=== PATIENT | female | born 1965 | race Caucasian/White ===

== ENCOUNTER 2016-08-31 11:57 | Inpatient (IN) | payer MEDICARE ==
[2016-08-31] VITALS (9 sets, daily range): BP systolic 85–101; BP diastolic 54–63
[~2016-08-31] VITALS: Ht 157.5 cm; Wt 44.3 kg
[~2016-08-31 11:57] MED LIST: ALBU18HF IH; BUDE10.2 IH; CALC600T11 PO; CLON0.5T PO; CYAN100016 SL; ESTR42.53 VG; FAMO-63 PO; FERR-26 PO; FLUD0.1T PO; FLUO10CA7 PO; FOLI1TAB16 PO; HYDR20TA PO; HYDR25TA PO; LEVALBUTER1.25 MG/0. IH; LEVO150T5 PO; MIRT15TA3 PO; MORP15TA34 PO; NIAC500T9 PO; OMEG1CAP6 PO; OXYC15TA22 PO; PANT40TA5 PO; PNV1TABL4 PO; PROP10TA PO; RANI150T2 PO; SUCR1TAB PO; TEST60CR TD; TIZA4TAB PO; TRAM-29 PO; TRAZ100T12 PO
[2016-08-31 15:06] LABS: BASO % 1 % (0-3); EOS # 0.2 x10^3/uL (0.0-0.7); EOS % 6 % (0-3); HEMATOCRIT 28.4 % (36.0-47.0); HEMOGLOBIN 9.4 g/dL (12.0-15.5); LYMPH # 1.5 x10^3/uL (1.0-4.8); LYMPH % 40 % (24-48); MEAN CORPUSCULAR HEMOGLOBIN 32 pg (25-35); MEAN CORPUSCULAR HGB CONC 33 g/dL (31-37); MEAN CORPUSCULAR VOLUME 96 fL (79-100); MONO # 0.2 x10^3/uL (0.0-1.1); MONO % 6 % (0-9); NEUT # 1.7 x10^3uL (1.8-7.7); NEUT % 47 % (31-73); PLATELET COUNT 153 x10^3/uL (140-400); RED BLOOD COUNT 2.97 x10^6/uL (3.50-5.40); RED CELL DISTRIBUTION WIDTH 13.8 % (11.5-14.5); WHITE BLOOD COUNT 3.6 x10^3/uL (4.0-11.0)
[2016-08-31 15:14] LABS: ALBUMIN/GLOBULIN RATIO 0.9 (1.0-1.7); CALCIUM 8.5 mg/dL (8.5-10.1); CREATININE 1.3 mg/dL (0.6-1.0); POTASSIUM 4.3 mmol/L (3.5-5.1); TOTAL BILIRUBIN 0.3 mg/dL (0.2-1.0); TOTAL PROTEIN 6.2 g/dL (6.4-8.2)
[2016-08-31] MEDS ORDERED: FERR325T31 PO (15:34)
[2016-08-31] MEDS ORDERED: PHEN-373 PO (15:34)
[2016-08-31] MEDS ORDERED: TRAM50TA PO (15:35)
[2016-08-31] MEDS ORDERED: FLUT1DIS3 IH (15:36)
[2016-08-31] MEDS ORDERED: HYDROCORTISONE 20 MG TABLET. PO PRN (16:00)
[2016-08-31] MEDS ORDERED: PROPRANOLOL 10 MG TABLET. PO PRN (16:00)
[2016-08-31] MEDS: IV NORMAL SALINE 1,000ML 1,000 ML IV SCH (16:05)
[2016-08-31] MEDS ORDERED: ALBUTEROL SULFATE 2.5 MG/3 ML NEBU. NEB PRN ×2 (16:30→21:00)
[2016-08-31] MEDS: FERROUS SULFATE 325 MG TABLET PO SCH ×2 (16:30→20:36)
[2016-08-31] MEDS: FOLIC ACID 1 MG TABLET PO SCH (16:31)
[2016-08-31] MEDS: OXYCODONE IR 5 MG TABLET. PO PRN (16:34)
--- NOTE | 2016-08-31 16:41 | RAD ---
Chest, 2 views, 08/31/2016: History: Shortness of breath, cough Comparison is made to a study from 02/26/2013. The lungs are hyperexpanded. The heart size is normal. There is a minimal streaky opacity projected over the anterior aspect of the heart on the lateral view suggesting atelectasis and/or scarring. This probably lies in the right middle lobe. There is also a small opacity projected over the left side of the heart on the PA view. There is no evidence of pleural fluid. IMPRESSION: 1. Hyperexpansion of lungs suggesting COPD. 2. Mild streaky atelectasis or scarring in the right middle lobe. 3. Small left basilar opacity which may represent a focus of pneumonia. Radiographic follow-up is suggested to exclude a neoplastic etiology.
[2016-08-31] MEDS: CALCIUM CARBONATE 500 MG TABLET PO SCH (17:24)
[2016-08-31] MEDS: traZODone 100 MG TABLET. PO SCH (20:36)
[2016-08-31] MEDS: FAMOTIDINE 20 MG TABLET PO SCH (20:36)
[2016-08-31] MEDS: MIRTAZAPINE 15 MG TABLET PO SCH (20:36)
[2016-08-31] MEDS: PHENAZOPYRIDINE 200 MG TABLET. PO SCH (20:36)
[2016-08-31] MEDS: FLUDROCORTISONE 0.1 MG TABLET PO SCH (20:37)
[2016-08-31] MEDS: MORPHINE ER 30 MG TABLET.ER PO SCH (20:38)
[2016-08-31] MEDS: HYDROXYZINE HCL 25 MG TABLET PO PRN (20:41)
[2016-08-31] MEDS ORDERED: ALBUTEROL SULFATE 8GM INHALER. IH PRN (20:45)
[2016-08-31] MEDS ORDERED: LEVALBUTEROL HCL 0.63 MG IH SCH (21:00)
[2016-08-31] MEDS ORDERED: NON FORMULARY ITEM (Fluticasone/Salmeterol (Advair 250-50 Diskus) 1 EACH) IH SCH (21:00)
[2016-08-31] MEDS ORDERED: NON FORMULARY ITEM (Budesonide/Formoterol Fumarate (Symbicort 160-4.5 Mcg Inhaler) 10.2 GM IH SCH (21:00)
[2016-08-31] MEDS: ALBUTEROL SULFATE 2.5 MG/3 ML NEBU. NEB SCH (21:27)
[2016-08-31] MEDS: BUDESONIDE 0.5 MG/2 ML NEBU NEB SCH (21:27)
[2016-08-31] MEDS: SUCRALFATE 1 GM TABLET. PO SCH (21:37)
[2016-09-01] MEDS: IV NORMAL SALINE 1,000ML 1,000 ML IV SCH ×3 (02:56→20:05)
[2016-09-01] MEDS: OXYCODONE IR 5 MG TABLET. PO PRN ×3 (04:20→16:57)
[2016-09-01 04:29] VITALS: BP 100/63
[2016-09-01] MEDS: ALBUTEROL SULFATE 2.5 MG/3 ML NEBU. NEB SCH ×4 (06:00→20:38)
[2016-09-01] MEDS: LEVOTHYROXINE 150 MCG TABLET PO SCH (06:03)
[2016-09-01 06:36] LABS: BASO % 1 % (0-3); EOS # 0.2 x10^3/uL (0.0-0.7); EOS % 5 % (0-3); HEMATOCRIT 28.3 % (36.0-47.0); HEMOGLOBIN 9.4 g/dL (12.0-15.5); LYMPH # 2.6 x10^3/uL (1.0-4.8); LYMPH % 56 % (24-48); MEAN CORPUSCULAR HEMOGLOBIN 32 pg (25-35); MEAN CORPUSCULAR HGB CONC 33 g/dL (31-37); MEAN CORPUSCULAR VOLUME 96 fL (79-100); MONO # 0.3 x10^3/uL (0.0-1.1); MONO % 6 % (0-9); NEUT # 1.5 x10^3uL (1.8-7.7); NEUT % 33 % (31-73); PLATELET COUNT 165 x10^3/uL (140-400); RED BLOOD COUNT 2.96 x10^6/uL (3.50-5.40); WHITE BLOOD COUNT 4.6 x10^3/uL (4.0-11.0)
[2016-09-01 06:47] LABS: CALCIUM 8.5 mg/dL (8.5-10.1); CREATININE 1.4 mg/dL (0.6-1.0); GFR 39.5; POTASSIUM 4.1 mmol/L (3.5-5.1)
[2016-09-01] MEDS: CEFTRIAXONE SODIUM 1 GM in IV NORMAL SALINE 50ML 50 ML IV SCH ×2 (07:00→11:42)
[2016-09-01] MEDS: BUDESONIDE 0.5 MG/2 ML NEBU NEB SCH ×2 (09:41→20:38)
[2016-09-01] MEDS: PANTOPRAZOLE 40 MG TABLET. PO SCH (09:48)
[2016-09-01] MEDS: SUCRALFATE 1 GM TABLET. PO SCH ×4 (09:48→20:06)
[2016-09-01] MEDS: FLUDROCORTISONE 0.1 MG TABLET PO SCH ×3 (09:49→20:06)
[2016-09-01] MEDS: MORPHINE ER 30 MG TABLET.ER PO SCH ×2 (09:49→20:07)
[2016-09-01] MEDS: CYANOCOBALAMIN (VITAMIN B-12) 250 MCG TABLET PO SCH (09:50)
[2016-09-01] MEDS: PHENAZOPYRIDINE 200 MG TABLET. PO SCH (09:50)
[2016-09-01] MEDS: FERROUS SULFATE 325 MG TABLET PO SCH ×4 (09:51→20:08)
[2016-09-01] MEDS: FLUOXETINE HCL 10 MG CAPSULE PO SCH (09:51)
[2016-09-01] MEDS: CALCIUM CARBONATE 500 MG TABLET PO SCH ×3 (09:51→16:59)
[2016-09-01] MEDS: FAMOTIDINE 20 MG TABLET PO SCH (09:51)
[2016-09-01] MEDS: OMEGA-3 FATTY ACIDS/FISH OIL 1,000 MG CAPSULE. PO SCH (09:51)
[2016-09-01] MEDS: FOLIC ACID 1 MG TABLET PO SCH (09:52)
[2016-09-01] MEDS: PRENATAL MULTIVITAMIN TABLET. PO SCH (09:52)
[2016-09-01] MEDS: tiZANidine 4 MG TABLET. PO PRN (10:06)
[2016-09-01 10:45] VITALS: BP 93/62
[2016-09-01] MEDS: AZITHROMYCIN 500 MG in IV NORMAL SALINE 250ML 250 ML IV SCH (10:48)
[2016-09-01 11:11] VITALS: BP 84/52
[2016-09-01] MEDS: CLONAZEPAM 0.5 MG TABLET PO PRN (12:56)
[2016-09-01 14:08] LABS: FECAL OB PT NEGATIVE (NEG)
[2016-09-01 15:48] VITALS: BP 93/57
--- NOTE | 2016-09-01 16:40 | RAD ---
CT of the chest without contrast, 09/01/2016: History: Pneumonia Noncontrast scans were obtained as requested. Comparison is made to a study from 01/08/2005 There is minimal apical pleural-parenchymal scarring. There are minimal linear opacities in the lung bases including the right middle lobe and inferior lingular region. The findings suggest scarring and/or atelectasis. No significant pulmonary consolidation is seen. A calcified granuloma is present in the right lower lobe medially. A tiny 2 mm noncalcified nodule is noted in the lateral aspect of the right middle level. It appears unchanged since the prior exam, indicating a benign etiology such as a granuloma. There is a trace amount of left-sided pleural fluid. Several tiny foci of nonspecific pleural thickening are noted posteriorly on the left. There is mild calcific plaquing of the thoracic aorta without evidence of aneurysm. No mediastinal adenopathy is seen. The heart is of normal size. A tiny amount of pericardial fluid is present. IMPRESSION: 1. Mild bibasilar linear scarring and/or atelectasis. 2. Tiny left pleural effusion with several small foci of nonspecific pleural thickening posteriorly on the left. 3. Old healed granulomatous disease in the chest. PQRS Compliance Statement: One or more of the following individualized dose reduction techniques were utilized for this examination: 1. Automated exposure control 2. Adjustment of the mA and/or kV according to patient size 3. Use of iterative reconstruction technique
--- NOTE | 2016-09-01 19:34 | PN ---
DATE: SUBJECTIVE: The patient admitted with generalized weakness, hypotension. The patient was also noted to have a pneumonic process, currently on IV antibiotic therapy. Continue on IV fluids. OBJECTIVE: VITAL SIGNS: The patient's blood pressure 84/50, respiratory rate 16, pulse 71, afebrile. GENERAL: The patient is alert and oriented. LUNGS: Diminished. She is very weak. Crackles in the bases. CARDIOVASCULAR: Regular sinus rhythm. ABDOMEN: Soft, diffuse tenderness. She has a colostomy bag on. EXTREMITIES: No clubbing, cyanosis or edema. NEUROLOGIC: Baseline for her. LABORATORY DATA: Hemoglobin 9.4, 28, white count 4.6. Sodium and potassium 143, 4.1. GFR ____ 40, albumin 3. IMPRESSION: Pneumonia of unspecified etiology, community acquired; Wilcox's disease with hypercortisol levels, hypotension, chronic kidney disease 3, iron deficiency anemia, mild to moderate protein malnutrition. PLAN: Continue on IV antibiotic therapy, fluids, hydration and try to get that blood pressure up. KARTIK KIRKLAND MD DR: QUINTON/adryan JOB#: [id number] / [id number]
[2016-09-01] MEDS: MIRTAZAPINE 15 MG TABLET PO SCH (20:06)
[2016-09-01] MEDS: HYDROXYZINE HCL 25 MG TABLET PO PRN (20:07)
[2016-09-01] MEDS: traZODone 100 MG TABLET. PO SCH (20:08)
[2016-09-01 20:19] VITALS: BP 102/60
[2016-09-01] MEDS: ONDANSETRON PF 4 MG/2 ML VIAL. IV PRN (23:31)
[2016-09-01] MEDS: TRAMADOL 50 MG TABLET. PO PRN (23:32)
[2016-09-02] MEDS: LEVOTHYROXINE 150 MCG TABLET PO SCH (05:34)
[2016-09-02] MEDS: ALBUTEROL SULFATE 2.5 MG/3 ML NEBU. NEB SCH ×4 (05:38→21:04)
[2016-09-02 05:53] VITALS: BP 97/56
[2016-09-02] MEDS: ONDANSETRON PF 4 MG/2 ML VIAL. IV PRN ×3 (06:08→17:32)
[2016-09-02] MEDS: TRAMADOL 50 MG TABLET. PO PRN (06:09)
[2016-09-02] MEDS: CEFTRIAXONE SODIUM 1 GM in IV NORMAL SALINE 50ML 50 ML IV SCH (08:14)
[2016-09-02] MEDS: OMEGA-3 FATTY ACIDS/FISH OIL 1,000 MG CAPSULE. PO SCH (08:15)
[2016-09-02] MEDS: CALCIUM CARBONATE 500 MG TABLET PO SCH ×3 (08:15→17:32)
[2016-09-02] MEDS: FERROUS SULFATE 325 MG TABLET PO SCH ×4 (08:15→19:58)
[2016-09-02] MEDS: FAMOTIDINE 20 MG TABLET PO SCH (08:15)
[2016-09-02] MEDS: CYANOCOBALAMIN (VITAMIN B-12) 250 MCG TABLET PO SCH (08:15)
[2016-09-02] MEDS: PRENATAL MULTIVITAMIN TABLET. PO SCH (08:15)
[2016-09-02] MEDS: FLUDROCORTISONE 0.1 MG TABLET PO SCH ×3 (08:15→19:58)
[2016-09-02] MEDS: PANTOPRAZOLE 40 MG TABLET. PO SCH (08:15)
[2016-09-02] MEDS: MORPHINE ER 30 MG TABLET.ER PO SCH ×2 (08:16→19:59)
[2016-09-02] MEDS: SUCRALFATE 1 GM TABLET. PO SCH ×4 (08:16→19:58)
[2016-09-02] MEDS: FLUOXETINE HCL 10 MG CAPSULE PO SCH (08:16)
[2016-09-02] MEDS: AZITHROMYCIN 500 MG in IV NORMAL SALINE 250ML 250 ML IV SCH (09:14)
[2016-09-02] MEDS: IV NORMAL SALINE 1,000ML 1,000 ML IV SCH ×2 (09:15→19:58)
[2016-09-02] MEDS: tiZANidine 4 MG TABLET. PO PRN ×2 (09:32→19:59)
[2016-09-02] MEDS: IBUPROFEN 400 MG TABLET. PO PRN ×2 (09:32→17:32)
[2016-09-02 10:57] VITALS: BP 89/53
[2016-09-02] MEDS: BUDESONIDE 0.5 MG/2 ML NEBU NEB SCH ×2 (11:25→21:04)
[2016-09-02 14:31] LABS: IRON,SERUM 73 ug/dL (50-170)
[2016-09-02 15:36] VITALS: BP 93/52
[2016-09-02 19:53] VITALS: BP 102/67
[2016-09-02] MEDS: MIRTAZAPINE 15 MG TABLET PO SCH (19:59)
[2016-09-02] MEDS: traZODone 100 MG TABLET. PO SCH (19:59)
[2016-09-02] MEDS: CLONAZEPAM 0.5 MG TABLET PO PRN (22:15)
[2016-09-02] MEDS: HYDROXYZINE HCL 25 MG TABLET PO PRN (22:17)
[2016-09-03] MEDS: ONDANSETRON PF 4 MG/2 ML VIAL. IV PRN ×3 (01:26→21:03)
[2016-09-03] MEDS: IBUPROFEN 400 MG TABLET. PO PRN ×3 (01:26→17:21)
[2016-09-03] MEDS: ALBUTEROL SULFATE 2.5 MG/3 ML NEBU. NEB SCH ×4 (05:48→20:50)
[2016-09-03] MEDS: LEVOTHYROXINE 150 MCG TABLET PO SCH (06:03)
[2016-09-03 06:40] VITALS: BP 101/58
[2016-09-03 06:49] LABS: BASO % 1 % (0-3); EOS # 0.2 x10^3/uL (0.0-0.7); EOS % 6 % (0-3); HEMATOCRIT 25.4 % (36.0-47.0); HEMOGLOBIN 8.4 g/dL (12.0-15.5); LYMPH # 1.5 x10^3/uL (1.0-4.8); LYMPH % 42 % (24-48); MEAN CORPUSCULAR HEMOGLOBIN 32 pg (25-35); MEAN CORPUSCULAR HGB CONC 33 g/dL (31-37); MEAN CORPUSCULAR VOLUME 97 fL (79-100); MONO # 0.2 x10^3/uL (0.0-1.1); MONO % 6 % (0-9); NEUT # 1.6 x10^3uL (1.8-7.7); NEUT % 45 % (31-73); PLATELET COUNT 131 x10^3/uL (140-400); RED BLOOD COUNT 2.62 x10^6/uL (3.50-5.40); RED CELL DISTRIBUTION WIDTH 14.4 % (11.5-14.5); WHITE BLOOD COUNT 3.5 x10^3/uL (4.0-11.0)
[2016-09-03 06:51] LABS: ALBUMIN 2.6 g/dL (3.4-5.0); ALBUMIN/GLOBULIN RATIO 0.9 (1.0-1.7); CALCIUM 8.3 mg/dL (8.5-10.1); CREATININE 1.2 mg/dL (0.6-1.0); GFR 47.2; TOTAL BILIRUBIN 0.3 mg/dL (0.2-1.0); TOTAL PROTEIN 5.5 g/dL (6.4-8.2)
[2016-09-03] MEDS: BUDESONIDE 0.5 MG/2 ML NEBU NEB SCH ×2 (08:00→20:50)
[2016-09-03] MEDS: CYANOCOBALAMIN (VITAMIN B-12) 250 MCG TABLET PO SCH (09:00)
[2016-09-03] MEDS ORDERED: CEFTRIAXONE SODIUM 1 GM in IV NORMAL SALINE 50ML 50 ML IV ONE (09:15)
[2016-09-03] MEDS ORDERED: ACETAMINOPHEN 325 MG TABLET PO PRN (09:30)
[2016-09-03] MEDS: FOLIC ACID 1 MG TABLET PO SCH (09:36)
[2016-09-03] MEDS: OMEGA-3 FATTY ACIDS/FISH OIL 1,000 MG CAPSULE. PO SCH (09:36)
[2016-09-03] MEDS: FAMOTIDINE 20 MG TABLET PO SCH (09:37)
[2016-09-03] MEDS: AZITHROMYCIN 250 MG TABLET. PO SCH (09:37)
[2016-09-03] MEDS: FLUOXETINE HCL 10 MG CAPSULE PO SCH (09:37)
[2016-09-03] MEDS: FERROUS SULFATE 325 MG TABLET PO SCH ×4 (09:37→19:36)
[2016-09-03] MEDS: MORPHINE ER 30 MG TABLET.ER PO SCH ×2 (09:37→19:31)
[2016-09-03] MEDS: PANTOPRAZOLE 40 MG TABLET. PO SCH (09:37)
[2016-09-03] MEDS: PRENATAL MULTIVITAMIN TABLET. PO SCH (09:38)
[2016-09-03] MEDS: FLUDROCORTISONE 0.1 MG TABLET PO SCH ×3 (09:40→19:32)
[2016-09-03] MEDS: CALCIUM CARBONATE 500 MG TABLET PO SCH ×3 (09:49→17:21)
[2016-09-03] MEDS: SUCRALFATE 1 GM TABLET. PO SCH ×4 (09:49→19:30)
[2016-09-03 11:57] VITALS: BP 144/75
--- NOTE | 2016-09-03 15:41 | RAD ---
CT of the head without contrast, 09/03/2016: History: Headaches Comparison is made to a study from 02/20/2004. The ventricles are within normal limits in size. There is no shift of the midline structures. There is no evidence of acute intracranial hemorrhage or mass effect. IMPRESSION: The CT of the head without contrast reveals no significant abnormality. RS Compliance Statement: One or more of the following individualized dose reduction techniques were utilized for this examination: 1. Automated exposure control 2. Adjustment of the mA and/or kV according to patient size 3. Use of iterative reconstruction technique
[2016-09-03 15:42] VITALS: BP 121/73
--- NOTE | 2016-09-03 16:49 | RAD ---
Chest, 2 views, 09/03/2016: History: Pneumonia Comparison is made to a study from 08/31/2016. The heart size and pulmonary vascularity are normal. There is minimal streaky atelectasis or scarring in the lingula. No new pulmonary opacities are seen. Blunting of the left lateral costophrenic angle suggests a tiny amount pleural fluid. IMPRESSION: 1. Mild linear scarring or atelectasis in the lingula. 2. Probable tiny left pleural effusion.
[2016-09-03 19:19] VITALS: BP 124/51
[2016-09-03] MEDS: traZODone 100 MG TABLET. PO SCH (19:31)
[2016-09-03] MEDS: MIRTAZAPINE 15 MG TABLET PO SCH (19:31)
[2016-09-03] MEDS: CLONAZEPAM 0.5 MG TABLET PO PRN (19:31)
--- NOTE | 2016-09-03 22:08 | PN ---
DATE: SUBJECTIVE: The patient is still having cough ____ pale appearing. The patient is resting fairly comfortably, still nauseated, getting antiemetics that seem to help her. We will get CT scan of the head today. PHYSICAL EXAMINATION: VITAL SIGNS: Show an increase in her blood pressure slightly to 100/50, respiratory rate 16, pulse 60, afebrile. GENERAL: The patient is alert and oriented. LUNGS: Diminished, but clear, some coarse breath sounds in the bases. We will repeat chest x-ray. CARDIOVASCULAR: Regular sinus rhythm. ABDOMEN: Soft, nontender. NEUROLOGIC: Alert and oriented. Speech fluent and spontaneous. Cranial nerves 2-12 grossly intact. PLAN: We will go ahead and get the repeat chest x-ray, check on any signs of pneumonia as well as a CT scan of her head. LABORATORY DATA: The patient's sodium, potassium stable. The patient's creatinine is still slightly elevated. Iron levels good, still low ____ encourage more nutritional intake. Also, TSH is low showing hyperthyroidism. IMPRESSION: Pneumonia of unspecified etiology, Dixon's disease, hypotension and pleural effusion. KARTIK KIRKLAND MD DR: QUINTON/adryan JOB#: [id number] / [id number]
[2016-09-04] MEDS: CEFTRIAXONE SODIUM 1 GM in IV NORMAL SALINE 50ML 50 ML IV SCH (05:16)
[2016-09-04] MEDS: SUCRALFATE 1 GM TABLET. PO SCH ×4 (05:16→20:24)
[2016-09-04] MEDS: LEVOTHYROXINE 150 MCG TABLET PO SCH (05:17)
[2016-09-04] MEDS: OXYCODONE IR 5 MG TABLET. PO PRN (05:17)
[2016-09-04] MEDS: ALBUTEROL SULFATE 2.5 MG/3 ML NEBU. NEB SCH ×4 (05:22→20:00)
[2016-09-04 05:35] VITALS: BP 90/50
[2016-09-04] MEDS: FERROUS SULFATE 325 MG TABLET PO SCH ×4 (08:38→20:24)
[2016-09-04] MEDS: FOLIC ACID 1 MG TABLET PO SCH (08:38)
[2016-09-04] MEDS: FLUOXETINE HCL 10 MG CAPSULE PO SCH (08:38)
[2016-09-04] MEDS: CALCIUM CARBONATE 500 MG TABLET PO SCH ×3 (08:38→17:14)
[2016-09-04] MEDS: AZITHROMYCIN 250 MG TABLET. PO SCH (08:38)
[2016-09-04] MEDS: FLUDROCORTISONE 0.1 MG TABLET PO SCH ×3 (08:38→20:24)
[2016-09-04] MEDS: PRENATAL MULTIVITAMIN TABLET. PO SCH (08:38)
[2016-09-04] MEDS: OMEGA-3 FATTY ACIDS/FISH OIL 1,000 MG CAPSULE. PO SCH (08:38)
[2016-09-04] MEDS: MORPHINE ER 30 MG TABLET.ER PO SCH ×2 (08:39→20:25)
[2016-09-04] MEDS: CYANOCOBALAMIN (VITAMIN B-12) 250 MCG TABLET PO SCH (08:39)
[2016-09-04] MEDS: PANTOPRAZOLE 40 MG TABLET. PO SCH (08:39)
[2016-09-04] MEDS: FAMOTIDINE 20 MG TABLET PO SCH (08:39)
[2016-09-04] MEDS: BUDESONIDE 0.5 MG/2 ML NEBU NEB SCH ×2 (11:06→20:00)
[2016-09-04] MEDS: IBUPROFEN 400 MG TABLET. PO PRN ×2 (11:12→17:39)
[2016-09-04] MEDS: ONDANSETRON PF 4 MG/2 ML VIAL. IV PRN (11:12)
[2016-09-04 11:40] VITALS: BP 97/59
[2016-09-04 16:01] VITALS: BP 91/57
[2016-09-04] MEDS: ONDANSETRON ODT 4 MG TAB.RAPDIS PO PRN (17:39)
[2016-09-04 19:09] VITALS: BP 106/71
[2016-09-04] MEDS: TRAMADOL 50 MG TABLET. PO PRN (19:56)
--- NOTE | 2016-09-04 20:03 | PN ---
DATE: 09/04/2016 SUBJECTIVE: She is resting fairly comfortably, although still very weak blood pressure still dropping. The patient otherwise will continue to monitor, continue with physical and occupational therapy. Hemoglobin down 8.4 and 25. Sodium, potassium, BUN and creatinine are all stable. In any case, the patient's albumin low at 2.6. The patient also still looks like she might have some hyperthyroidism. OBJECTIVE: VITAL SIGNS: Otherwise blood pressure 90/50, respiratory rate 20, pulse 66, afebrile. Continue on IV fluids. Continue with aggressive pulmonary toilet. LUNGS: Diminished throughout, but clear. CARDIOVASCULAR: Stable. ABDOMEN: Soft, nontender. The patient continued to be monitored carefully make further evaluation on her as indicated. IMPRESSION: Pneumonia of unspecified etiology, disease, hypertension, anemia of chronic disease, pleural effusions. KARTIK KIRKLAND MD DR: QUINTON/adryan JOB#: [id number] / [id number]
[2016-09-04] MEDS: traZODone 100 MG TABLET. PO SCH (20:24)
[2016-09-04] MEDS: MIRTAZAPINE 15 MG TABLET PO SCH (20:25)
[2016-09-05 00:08] VITALS: BP 130/71
[2016-09-05] MEDS: LEVOTHYROXINE 150 MCG TABLET PO SCH (06:07)
[2016-09-05] MEDS: CEFTRIAXONE SODIUM 1 GM in IV NORMAL SALINE 50ML 50 ML IV SCH (06:07)
[2016-09-05 06:29] VITALS: BP 117/64
[2016-09-05] MEDS: ALBUTEROL SULFATE 2.5 MG/3 ML NEBU. NEB SCH ×2 (07:21→11:20)
[2016-09-05] MEDS: BUDESONIDE 0.5 MG/2 ML NEBU NEB SCH (08:00)
[2016-09-05] MEDS: OMEGA-3 FATTY ACIDS/FISH OIL 1,000 MG CAPSULE. PO SCH (08:33)
[2016-09-05] MEDS: AZITHROMYCIN 250 MG TABLET. PO SCH (08:33)
[2016-09-05] MEDS: PANTOPRAZOLE 40 MG TABLET. PO SCH (08:33)
[2016-09-05] MEDS: FOLIC ACID 1 MG TABLET PO SCH (08:34)
[2016-09-05] MEDS: MORPHINE ER 30 MG TABLET.ER PO SCH (08:34)
[2016-09-05] MEDS: FLUOXETINE HCL 10 MG CAPSULE PO SCH (08:34)
[2016-09-05] MEDS: FLUDROCORTISONE 0.1 MG TABLET PO SCH (08:34)
[2016-09-05] MEDS: CYANOCOBALAMIN (VITAMIN B-12) 250 MCG TABLET PO SCH (08:34)
[2016-09-05] MEDS: FAMOTIDINE 20 MG TABLET PO SCH (08:34)
[2016-09-05] MEDS: FERROUS SULFATE 325 MG TABLET PO SCH (08:34)
[2016-09-05] MEDS: CALCIUM CARBONATE 500 MG TABLET PO SCH (08:34)
[2016-09-05] MEDS: SUCRALFATE 1 GM TABLET. PO SCH (08:36)
[2016-09-05] MEDS: PRENATAL MULTIVITAMIN TABLET. PO SCH (08:36)
[2016-09-05] MEDS: ONDANSETRON ODT 4 MG TAB.RAPDIS PO PRN (08:49)
[2016-09-05] MEDS: IBUPROFEN 400 MG TABLET. PO PRN (08:49)
--- NOTE | 2016-09-05 11:47 | DS ---
DATE OF DISCHARGE: 09/05/2016 HOSPITAL COURSE: The patient was admitted on 08/31/2016, she came in with severe weakness, hypotension, blood pressure of 84/50 and the like. The patient has a history of Shiloh's disease. She was given additional cortisol, made good progress, also IV antibiotics for her pneumonia. She was also chronically anemic as well as having problems with her situation with her thyroid is also somewhat will need to be worked up as an outpatient as her TSH was diminished at 0.053, iron levels were stable. Her albumin was low at 2.6 and creatinine was elevated at 1.2. The patient is markedly cachectic. In any case, the patient made good, we had given her of KAITLYN hoses to get her blood pressure backup. PHYSICAL EXAMINATION: GENERAL: She made good progress during the rest of her hospitalization. VITAL SIGNS: Her last blood pressure reading in the hospital was 117/64, respiratory rate 16, pulse 60. LUNGS: The patient's lungs diminished. CARDIOVASCULAR: Stable. ABDOMEN: Soft. The patient was told to follow up, eat better diet. She needs a full diet, gain some weight. She had a CT scan of the head, which was negative because she was having headaches. Her chest CTs at first demonstrated possible pneumonic processes and she pretty much pleural effusions as well. IMPRESSION: Therefore, See JP. Decreased activity, wear KAITLYN hoses, , pneumonia of unspecified etiology, Shiloh's disease, hypotension, anemia of chronic disease, hyperthyroidism, severe protein malnutrition, generalized weakness, cachexia. In any case, she will be discharged home to follow up as an outpatient as noted as above. KARTIK KIRKLAND MD DR: QUINTON/adryan JOB#: [id number] / [id number]
== END 2016-09-05 10:30 | disposition home or self-care (01) | DRG 193 ==
LOC: 1 SOUTH 13:12
PROVIDERS: ADMIT Family Medicine; ATTEND Family Medicine
DX: J18.9 Pneumonia, unspecified organism (principal); E43 Unspecified severe protein-calorie malnutrition; E27.1 Primary adrenocortical insufficiency; J90 Pleural effusion, not elsewhere classified; Z68.1 Body mass index [BMI] 19.9 or less, adult; I95.9 Hypotension, unspecified; D50.9 Iron deficiency anemia, unspecified; D63.8 Anemia in other chronic diseases classified elsewhere; I12.9 Hypertensive chronic kidney disease with stage 1 through stage 4 chronic kidney disease, or unspecified chronic kidney disease; N18.3 Chronic kidney disease, stage 3 (moderate); E05.90 Thyrotoxicosis, unspecified without thyrotoxic crisis or storm
CPT/HCPCS: 36415; 70450; 71020; 71250; 80048; 80053; 82274; 82533; 82607; 83540; 83550; 83605; 84443; 85027; 94640; J0456; J0696; J2405; J7050; J7613; J7626; Q0162; 97110; 97116; 97535; J7030

== ENCOUNTER 2017-01-18 09:02 | Inpatient (IN) | payer MEDICARE ==
[~2017-01-18] VITALS: Ht 157.5 cm; Wt 44.6 kg
[~2017-01-18 09:02] MED LIST changes: -CALC600T11 PO; +CALC600T23 PO; +FERR-36 PO; +FLUT1DIS3 IH; -MORP15TA34 PO; +MORP15TA80 PO; +PHEN-444 PO; -TRAM-29 PO; +TRAM-48 PO; +TRAM50TA PO; +TRAZ-90 PO; -TRAZ100T12 PO
[2017-01-18] MEDS ORDERED: IV NORMAL SALINE 500ML 500 ML ONE (09:46)
[2017-01-18] MEDS ORDERED: HYDROCORTISONE SOD SUCC/PF 100 MG/2 ML VIAL. IV ONE (09:50)
[2017-01-18] MEDS ORDERED: IV NORMAL SALINE 1,000ML 1,000 ML IV ONE (09:50)
[2017-01-18 09:52] LABS: BASO % 0 % (0-3); EOS # 0.1 x10^3/uL (0.0-0.7); EOS % 1 % (0-3); HEMATOCRIT 29.3 % (36.0-47.0); HEMOGLOBIN 9.7 g/dL (12.0-15.5); LYMPH # 0.3 x10^3/uL (1.0-4.8); LYMPH % 2 % (24-48); MEAN CORPUSCULAR HEMOGLOBIN 31 pg (25-35); MEAN CORPUSCULAR HGB CONC 33 g/dL (31-37); MEAN CORPUSCULAR VOLUME 94 fL (79-100); MONO # 0.6 x10^3/uL (0.0-1.1); MONO % 5 % (0-9); NEUT # 12.3 x10^3uL (1.8-7.7); NEUT % 92 % (31-73); PLATELET COUNT 169 x10^3/uL (140-400); RED BLOOD COUNT 3.11 x10^6/uL (3.50-5.40); RED CELL DISTRIBUTION WIDTH 13.9 % (11.5-14.5); WHITE BLOOD COUNT 13.4 x10^3/uL (4.0-11.0)
[2017-01-18 10:07] LABS: CALCIUM 9.3 mg/dL (8.5-10.1); CREATININE 2.1 mg/dL (0.6-1.0); GFR 24.6; MAGNESIUM 1.7 mg/dL (1.8-2.4); POTASSIUM 4.4 mmol/L (3.5-5.1)
--- NOTE | 2017-01-18 11:02 | EKG ---
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
[2017-01-18] MEDS ORDERED: IV NORMAL SALINE 500ML 500 ML IV ONE (11:15)
--- NOTE | 2017-01-18 12:03 | PHYS DOC ---
Past History Past Medical History: Anemia, Fibromyalgia, Hyperthyroid, Hypotension, Pneumonia, Other Past Surgical History: Colectomy Alcohol Use: None Drug Use: None Adult General Chief Complaint Chief Complaint: HYPOTENSION HPI HPI Patient is a 51 year old F who presents with low blood pressure, generalized malaise and other symptoms consistent with previous Candor's crisis. She states that over the past 4 weeks she has been coughing more frequently. This cough seems to be productive of sputum that is occasionally yellow. She also has been more off balance over the past few days resulting in several falls and right sided rib pain. She states that her pain is worse with deep inspiration and better with rest. She has no other associated symptoms Review of Systems Review of Systems Constitutional: Denies fever or chills [] Eyes: Denies change in visual acuity, redness, or eye pain [] HENT: Denies nasal congestion or sore throat [] Respiratory: Negative except history of present illness Cardiovascular: No additional information not addressed in HPI [] GI: Denies abdominal pain, nausea, vomiting, bloody stools or diarrhea [] : Denies dysuria or hematuria [] Musculoskeletal: Negative except history of present illness Integument: Denies rash or skin lesions [] Neurologic: Denies headache, focal weakness or sensory changes [] Endocrine: Denies polyuria or polydipsia [] Family History Family History Noncontributory Current Medications Current Medications Current Medications Medications (Trade) Dose Ordered Sig/Grabiel Start Time Stop Time Status Last Admin Dose Admin Hydrocortisone Sodium Succinate (Solu-CORTEF) 100 mg 1X ONCE 01/18/17 09:50 01/18/17 09:51 DC 01/18/17 09:50 100 MG Sodium Chloride 500 ml @ As Directed STK-MED ONCE 01/18/17 09:46 01/18/17 09:47 DC Allergies Allergies Allergies Coded Allergies Type Severity Reaction Last Updated Verified Penicillins Allergy Intermediate Nausea and Vomiting 09/02/16 Yes erythromycin base Allergy Intermediate Nausea and Vomiting 09/02/16 Yes loratadine Allergy Intermediate Hyper feeling 09/02/16 Yes Physical Exam Physical Exam Constitutional: malnourished, mild distress, non-toxic appearance. [] HENT: Normocephalic, bilateral external ears normal, oropharynx dry, no oral exudates, Eyes: PERRLA, EOMI, conjunctiva normal, no discharge. [] Neck: Normal range of motion, no tenderness, supple, no stridor. [] Cardiovascular:Heart rate regular rhythm, weak pulses Lungs & Thorax: Bilateral breath sounds clear to auscultation [] Abdomen: Bowel sounds normal, soft, no masses, no pulsatile masses. [] Diffuse abdominal pain. Colostomy in place with no signs of infection or other abnormalities Skin: Warm, dry, no erythema, no rash. [] Back: No tenderness, no CVA tenderness. [] Extremities: No tenderness, no cyanosis, no clubbing, ROM intact, no edema. [] Neurologic: Alert and oriented X 3, normal motor function, normal sensory function, no focal deficits noted. [] Psychologic: Affect normal, judgement normal, mood normal. [] Current Patient Data Vital Signs Vital Signs Date Time Temp Pulse Resp B/P (MAP) Pulse Ox O2 Delivery O2 Flow Rate FiO2 01/18/17 11:21 98 18 84/51 (62) 98 Nasal Cannula 2.0 01/18/17 09:05 98.3 Lab Results Laboratory Tests Test 01/18/17 09:35 White Blood Count 13.4 x10^3/uL (4.0-11.0) H Red Blood Count 3.11 x10^6/uL (3.50-5.40) L Hemoglobin 9.7 g/dL (12.0-15.5) L Hematocrit 29.3 % (36.0-47.0) L Mean Corpuscular Volume 94 fL (79-100) Mean Corpuscular Hemoglobin 31 pg (25-35) Mean Corpuscular Hemoglobin Concent 33 g/dL (31-37) Red Cell Distribution Width 13.9 % (11.5-14.5) Platelet Count 169 x10^3/uL (140-400) Neutrophils (%) (Auto) 92 % (31-73) H Lymphocytes (%) (Auto) 2 % (24-48) L Monocytes (%) (Auto) 5 % (0-9) Eosinophils (%) (Auto) 1 % (0-3) Basophils (%) (Auto) 0 % (0-3) Neutrophils # (Auto) 12.3 x10^3uL (1.8-7.7) H Lymphocytes # (Auto) 0.3 x10^3/uL (1.0-4.8) L Monocytes # (Auto) 0.6 x10^3/uL (0.0-1.1) Eosinophils # (Auto) 0.1 x10^3/uL (0.0-0.7) Basophils # (Auto) 0.0 x10^3/uL (0.0-0.2) Sodium Level 129 mmol/L (136-145) L Potassium Level 4.4 mmol/L (3.5-5.1) Chloride Level 96 mmol/L (98-107) L Carbon Dioxide Level 25 mmol/L (21-32) Anion Gap 8 (6-14) Blood Urea Nitrogen 37 mg/dL (7-20) H Creatinine 2.1 mg/dL (0.6-1.0) H Estimated GFR (Cockcroft-Gault) 24.6 Glucose Level 141 mg/dL (70-99) H Calcium Level 9.3 mg/dL (8.5-10.1) Magnesium Level 1.7 mg/dL (1.8-2.4) L Lactate Dehydrogenase 148 U/L (81-234) EKG EKG Sinus rhythm at normal rate. Incomplete right bundle branch block noted. No obvious acute changes Radiology/Procedures Radiology/Procedures Chest x-ray Impressions: No acute disease Course & Med Decision Making Course & Med Decision Making Pertinent Labs and Imaging studies reviewed. (See chart for details) Narcisa's symptoms are most consistent with addisonian crisis associated with dehydration. Her primary care physician Dr. Gould was contacted by phone. She was admitted to telemetry under inpatient status per the recommendations of Dr. Gould. Dragon Disclaimer Dragon Disclaimer This chart was dictated in whole or in part using Voice Recognition software in a busy, high-work load, and often noisy Emergency Department environment. It may contain unintended and wholly unrecognized errors or omissions. Departure Departure: Impression: Primary Impression: Addisonian crisis Additional Impressions: Dehydration Hyponatremia Disposition: ADMITTED INPATIENT Condition: STABLE Referrals: KARTIK KIRKLAND MD (PCP) Problem Qualifiers KARTIK MELENDREZ MD Jan 18, 2017 12:02
[2017-01-18] MEDS: IV NORMAL SALINE 1,000ML 1,000 ML IV SCH ×2 (12:13→20:49)
--- NOTE | 2017-01-18 12:44 | RAD ---
AP portable chest radiograph 01/18/2017 Clinical History: Rib pain. Chest pain. An AP portable erect digital radiograph of the chest was obtained. Comparison study is dated 09/03/2016. The cardiac silhouette is borderline enlarged. Thoracic aorta is minimally tortuous. A patchy area of infiltrate is seen involving the left lower lobe. The right lung is clear. No pneumothorax or pleural effusion is seen. The osseous structures are grossly intact. Impression: Left lower lobe infiltrate.
[2017-01-18 12:48] VITALS: BP 88/60
[2017-01-18] MEDS ORDERED: tiZANidine 4 MG TABLET. PO PRN (13:15)
[2017-01-18] MEDS ORDERED: traMADol 50 MG TABLET PO SCH (13:15)
[2017-01-18] MEDS ORDERED: ALBUTEROL SULFATE 8GM INHALER. IH PRN (13:15)
[2017-01-18] MEDS ORDERED: clonazePAM 0.5 MG TABLET PO PRN (13:15)
[2017-01-18] MEDS ORDERED: PROPRANOLOL 10 MG TABLET. PO PRN (13:15)
[2017-01-18] MEDS ORDERED: HYDROCORTISONE 20 MG TABLET. PO PRN (13:15)
[2017-01-18] MEDS ORDERED: hydrOXYzine HCL 25 MG TABLET PO PRN (13:15)
[2017-01-18] MEDS ORDERED: LEVALBUTEROL HCL 0.63 MG IH SCH (14:00)
[2017-01-18] MEDS ORDERED: ALBUTEROL SULFATE 2.5 MG/3 ML NEBU. NEB PRN (14:15)
[2017-01-18 14:52] VITALS: BP 92/59
[2017-01-18] MEDS: ALBUTEROL SULFATE 2.5 MG/3 ML NEBU. NEB SCH ×2 (15:09→21:05)
[2017-01-18] MEDS: traMADol 50 MG TABLET PO PRN (15:14)
[2017-01-18] MEDS: PHENAZOPYRIDINE 200 MG TABLET. PO SCH ×2 (15:15→20:48)
[2017-01-18] MEDS: SUCRALFATE 1 GM TABLET. PO SCH ×2 (15:15→20:48)
[2017-01-18] MEDS: FERROUS SULFATE 325 MG TABLET PO SCH ×2 (16:41→20:48)
[2017-01-18] MEDS: FLUDROCORTISONE 0.1 MG TABLET PO SCH ×2 (16:41→20:48)
[2017-01-18 16:48] LABS: BACTERIA,URINE 0 /HPF (0-FEW); BILIRUBIN,URINE NEG (NEG); CLARITY,URINE HAZY; COLOR,URINE YELLOW; GLUCOSE,URINE NEG (NEG); NITRITE,URINE NEG (NEG); RBC,URINE OCC /HPF (0-2); SQUAMOUS EPITHELIAL CELL,UR OCC /LPF; UROBILINOGEN,URINE 0.2 mg/dL (0.2 mg/dL); WBC,URINE 0 /HPF (0-4)
[2017-01-18 18:08] VITALS: BP 92/59
[2017-01-18 19:10] VITALS: BP 96/60
[2017-01-18] MEDS: MIRTAZAPINE 15 MG TABLET PO SCH (20:48)
[2017-01-18] MEDS: traZODone 100 MG TABLET. PO SCH (20:48)
[2017-01-18] MEDS: MORPHINE ER 30 MG TABLET.ER PO SCH (20:48)
[2017-01-18] MEDS: FAMOTIDINE 20 MG TABLET PO SCH (20:48)
[2017-01-18] MEDS ORDERED: NON FORMULARY ITEM (Fluticasone/Salmeterol (Advair 250-50 Diskus) 1 EACH) IH SCH (21:00)
[2017-01-18] MEDS ORDERED: NON FORMULARY ITEM (Budesonide/Formoterol Fumarate (Symbicort 160-4.5 Mcg Inhaler) 10.2 GM IH SCH (21:00)
[2017-01-18] MEDS ORDERED: ENOXAPARIN 30 MG/0.3 ML DISP.SYRIN. SQ SCH (21:00)
[2017-01-18] MEDS: BUDESONIDE 0.5 MG/2 ML NEBU NEB SCH (21:05)
[2017-01-18 22:45] VITALS: BP 93/50
--- NOTE | 2017-01-19 00:43 | HP ---
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 The patient became increasingly weak and felt that she was having any Dixon crisis, as a result of this came in through the Emergency Room. The patient notes that she also had pain in her chest as a result of her taking deep breath. Chest x-ray did show a pneumonic process. The patient was admitted to the hospital for further evaluation, IV antibiotic therapy as indicated. 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 ALLERGIES: PENICILLIN, CLARITIN, AND ERYTHROMYCIN. MEDICATIONS: Include Ventolin HFA inhaler p.r.n., Symbicort 160 two puffs b.i.d., calcium carbonate, Klonopin 0.5 q. 8, B12 shots, Pepcid 20 mg b.i.d., ferrous sulfate 325 q.i.d., fludrocortisone acetate 0.1 mg t.i.d., Prozac 10 mg a day, Remeron 15 mg at bedtime, MS Contin, oxycodone 5 mg q. 6 p.r.n., tramadol 50 mg a day, trazodone 100 mg at bedtime, sucralfate 1 tablet daily, propranolol 10 mg b.i.d. FAMILY HISTORY: Unremarkable. SOCIAL HISTORY: The patient denies smoking, alcohol or drug use. REVIEW OF SYSTEMS: Generalized waking. Denies chest pain. Does have coughing, shortness of breath, weight loss, poor appetite. The patient has had previous surgery of a colonoscopy. Denies any problems with bowels or bladder. Does feel shortness of breath. Denies headaches, vision change, blurred vision, double vision. PHYSICAL EXAMINATION: GENERAL: This is a very frail-appearing white female looking older than stated age. VITAL SIGNS: Blood pressure 96/60, respiratory rate 19, pulse 72, afebrile. HEENT: The patient's head was atraumatic, normocephalic. Eyes: PERRLA without jaundice. Mouth and throat were normal. NECK: Supple, without JVD, carotid bruits. No thyromegaly. LUNGS: Diminished throughout, poor movement of air. CARDIOVASCULAR: Regular sinus rhythm, S1, S2. ABDOMEN: Soft, nontender. SKIN: Dry, cracked. ABDOMEN: Soft, nontender, no rebound or guarding, positive bowel sounds, no hepatosplenomegaly was noted. EXTREMITIES: No clubbing, cyanosis. No edema. NEUROLOGIC: The patient was alert and oriented x 3. LABORATORY DATA: Sodium 129, BUN and creatinine 37 and 2.1, magnesium low at 1.7. White count 13, hemoglobin and hematocrit 9 and 29. Urine was unremarkable. D-dimer was elevated. VQ scan ordered. IMPRESSION: Pneumonia of unspecified etiology, community acquired as well as Hidalgo syndrome and hypotension. PLAN: The patient will be admitted, placed on IV antibiotic therapy, fluids. Recheck electrolytes and so forth in the morning and make further evaluation on her as indicated. KARTIK KIRKLAND MD DR: QUINTON/adryan JOB#: [id number] / [id number]
[2017-01-19] MEDS: ALBUTEROL SULFATE 2.5 MG/3 ML NEBU. NEB SCH ×4 (05:13→21:38)
[2017-01-19 05:22] VITALS: BP 109/66
[2017-01-19] MEDS: LEVOTHYROXINE 150 MCG TABLET PO SCH (06:18)
[2017-01-19] MEDS: traMADol 50 MG TABLET PO PRN (06:18)
[2017-01-19 06:36] LABS: ALBUMIN 2.5 g/dL (3.4-5.0); ALBUMIN/GLOBULIN RATIO 0.7 (1.0-1.7); CALCIUM 8.7 mg/dL (8.5-10.1); CREATININE 1.3 mg/dL (0.6-1.0); GFR 42.8; POTASSIUM 3.7 mmol/L (3.5-5.1); TOTAL BILIRUBIN 0.3 mg/dL (0.2-1.0); TOTAL PROTEIN 6.2 g/dL (6.4-8.2)
[2017-01-19 06:37] LABS: BASO % 0 % (0-3); EOS % 0 % (0-3); HEMATOCRIT 26.7 % (36.0-47.0); LYMPH # 0.9 x10^3/uL (1.0-4.8); LYMPH % 7 % (24-48); MEAN CORPUSCULAR HEMOGLOBIN 31 pg (25-35); MEAN CORPUSCULAR HGB CONC 34 g/dL (31-37); MEAN CORPUSCULAR VOLUME 93 fL (79-100); MONO # 0.9 x10^3/uL (0.0-1.1); MONO % 7 % (0-9); NEUT # 10.7 x10^3uL (1.8-7.7); NEUT % 85 % (31-73); PLATELET COUNT 174 x10^3/uL (140-400); RED BLOOD COUNT 2.87 x10^6/uL (3.50-5.40); RED CELL DISTRIBUTION WIDTH 14.2 % (11.5-14.5); WHITE BLOOD COUNT 12.6 x10^3/uL (4.0-11.0)
[2017-01-19] MEDS: MORPHINE ER 30 MG TABLET.ER PO SCH ×2 (08:12→21:16)
[2017-01-19] MEDS: PHENAZOPYRIDINE 200 MG TABLET. PO SCH ×3 (08:13→21:16)
[2017-01-19] MEDS: SUCRALFATE 1 GM TABLET. PO SCH ×4 (08:13→21:16)
[2017-01-19] MEDS: FLUoxetine HCL 10 MG CAPSULE PO SCH (08:13)
[2017-01-19] MEDS: PANTOPRAZOLE 40 MG TABLET. PO SCH (08:13)
[2017-01-19] MEDS: FAMOTIDINE 20 MG TABLET PO SCH ×2 (08:13→21:16)
[2017-01-19] MEDS: FLUDROCORTISONE 0.1 MG TABLET PO SCH ×3 (08:14→21:18)
[2017-01-19] MEDS: FERROUS SULFATE 325 MG TABLET PO SCH ×4 (08:23→21:16)
[2017-01-19] MEDS: FOLIC ACID 1 MG TABLET PO SCH (08:23)
[2017-01-19] MEDS: IV NORMAL SALINE 1,000ML 1,000 ML IV SCH (08:50)
[2017-01-19] MEDS ORDERED: [UNRECOGNIZED DRUG - OTHER] TD SCH (09:00)
[2017-01-19] MEDS: BUDESONIDE 0.5 MG/2 ML NEBU NEB SCH ×2 (09:48→21:38)
[2017-01-19 10:34] VITALS: BP 109/63
--- NOTE | 2017-01-19 12:07 | RAD ---
Lung scan 01/19/2017 Clinical history: Elevated d-dimer with productive cough and right lower chest pain. Technique: After the administration of 20.1 mCi of xenon-133 gas, ventilation images of both lungs were obtained using the gamma camera. After the intravenous administration of 5.3 mCi of technetium 99m MAA, perfusion images of both lungs were obtained using a gamma camera. Findings: Comparison is made to s portable chest radiograph dated 01/18/2017. This demonstrates s patchy area of infiltrate involving the left lower lobe. Homogeneous ventilation and perfusion to both lungs is seen. No perfusion defect is noted. These findings are consistent with a normal lung scan. Impression: Normal lung scan.
[2017-01-19 12:26] LABS: BARBITURATES NEG (NEG); BENZODIAZEPINES POS (NEG); CANNABINOIDS NEG (NEG); COCAINE NEG (NEG); METHADONE NEG (NEG); OPIATES POS (NEG); PHENCYCLIDINE POS (NEG)
[2017-01-19 12:33] LABS: AMPHETAMINE/METHAMPHETAMINE NEG (NEG)
[2017-01-19] MEDS ORDERED: clonazePAM 1 MG TABLET PO PRN (13:45)
[2017-01-19] MEDS: oxyCODONE IR 5 MG TABLET PO PRN (15:23)
[2017-01-19 15:28] VITALS: BP 112/69
[2017-01-19 19:00] VITALS: BP 125/74
[2017-01-19] MEDS ORDERED: VANCOMYCIN PER PHARMACY MC PRN (21:00)
[2017-01-19] MEDS: ACETAMINOPHEN 325 MG TABLET PO PRN (21:14)
[2017-01-19] MEDS: MIRTAZAPINE 15 MG TABLET PO SCH (21:16)
[2017-01-19] MEDS: traZODone 100 MG TABLET. PO SCH (21:16)
[2017-01-19] MEDS: ENOXAPARIN 40 MG/0.4 ML DISP.SYRIN. SQ SCH (21:16)
[2017-01-19] MEDS ORDERED: VANCOMYCIN 1 GM in IV NORMAL SALINE 250ML 250 ML IV ONE (21:30)
[2017-01-20] VITALS (13 sets, daily range): BP systolic 83–121; BP diastolic 58–85
--- NOTE | 2017-01-20 04:29 | PN ---
DATE: 01/19/2017 SUBJECTIVE: A 51-year-old female in with left lower lobe pneumonia, generalized weakness, Dixon syndrome____. The patient's white count is still elevated at 12,000. The patient's chemistries are basically unremarkable showing her acute on top of chronic renal failure, low magnesium and like. The patient otherwise says she is feeling somewhat better overall, but still very weak, coughing, severe pain in her ribs, still running a low-grade temperature 99.3. OBJECTIVE: VITAL SIGNS: Blood pressure 110/60, respiratory rate 18, pulse 95, and 2 liters of oxygen. GENERAL: The patient is alert and oriented, but in pain holding her left side. LUNGS: Diminished particularly in the left lower lobe, crackles. CARDIOVASCULAR: Regular sinus rhythm. ABDOMEN: Soft, nontender. EXTREMITIES: No clubbing, cyanosis, or edema. The patient has marked musculoskeletal atrophy and generalized weakness throughout. We will continue with PT, OT. 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 KARTIK KIRKLAND MD DR: QUINTON/adryan JOB#: [id number] / [id number]
[2017-01-20] MEDS: LEVOTHYROXINE 150 MCG TABLET PO SCH (04:57)
[2017-01-20] MEDS: IV NORMAL SALINE 1,000ML 1,000 ML IV SCH ×3 (04:58→20:39)
[2017-01-20 06:00] LABS: BGAS PH 7.19 (7.35-7.45)
[2017-01-20 06:33] LABS: CALCIUM 8.3 mg/dL (8.5-10.1); CREATININE 1.2 mg/dL (0.6-1.0); POTASSIUM 3.4 mmol/L (3.5-5.1)
[2017-01-20 06:41] LABS: BASO % 0 % (0-3); EOS % 0 % (0-3); HEMATOCRIT 28.3 % (36.0-47.0); HEMOGLOBIN 9.2 g/dL (12.0-15.5); LYMPH # 1.9 x10^3/uL (1.0-4.8); LYMPH % 16 % (24-48); MEAN CORPUSCULAR HEMOGLOBIN 31 pg (25-35); MEAN CORPUSCULAR HGB CONC 33 g/dL (31-37); MEAN CORPUSCULAR VOLUME 95 fL (79-100); MONO # 1.3 x10^3/uL (0.0-1.1); MONO % 11 % (0-9); NEUT # 8.5 x10^3uL (1.8-7.7); NEUT % 72 % (31-73); PLATELET COUNT 193 x10^3/uL (140-400); RED BLOOD COUNT 2.97 x10^6/uL (3.50-5.40); RED CELL DISTRIBUTION WIDTH 14.7 % (11.5-14.5); WHITE BLOOD COUNT 11.8 x10^3/uL (4.0-11.0)
[2017-01-20 07:22] LABS: BGAS PH 7.24 (7.35-7.45)
--- NOTE | 2017-01-20 07:29 | RAD ---
Exam performed: One view chest. Indication: soa, low o2 Date of Service: 01/20/2017 8:06 AM Comparison: Single view chest from 01/18/17. Single AP upright portable view chest findings: Increasing infiltrates in the left lung base obscuring the left hemidiaphragm and costophrenic angle. There is perhaps a small left pleural effusion. Cardiomediastinal silhouette is within limits of normal. Right lung is clear. No right-sided pleural effusion or pneumothorax seen Impression: Worsening infiltrates left lung base with probable small pleural effusion.
[2017-01-20] MEDS: FOLIC ACID 1 MG TABLET PO SCH (08:05)
[2017-01-20] MEDS: MORPHINE ER 30 MG TABLET.ER PO SCH ×2 (08:05→21:00)
[2017-01-20] MEDS: FERROUS SULFATE 325 MG TABLET PO SCH ×4 (08:05→21:01)
[2017-01-20] MEDS: PANTOPRAZOLE 40 MG TABLET. PO SCH (08:05)
[2017-01-20] MEDS: FAMOTIDINE 20 MG TABLET PO SCH ×2 (08:05→21:01)
[2017-01-20] MEDS: SUCRALFATE 1 GM TABLET. PO SCH ×4 (08:05→21:00)
[2017-01-20] MEDS: PHENAZOPYRIDINE 200 MG TABLET. PO SCH ×3 (10:37→21:01)
[2017-01-20] MEDS: FLUDROCORTISONE 0.1 MG TABLET PO SCH ×3 (10:37→21:01)
[2017-01-20] MEDS: FLUoxetine HCL 10 MG CAPSULE PO SCH (10:38)
[2017-01-20] MEDS: BUDESONIDE 0.5 MG/2 ML NEBU NEB SCH ×2 (10:48→20:12)
[2017-01-20] MEDS: ALBUTEROL SULFATE 2.5 MG/3 ML NEBU. NEB SCH ×4 (10:48→20:12)
[2017-01-20] MEDS: ACETAMINOPHEN 325 MG TABLET PO PRN (16:02)
[2017-01-20] MEDS ORDERED: NALOXONE 0.4 MG/ML VIAL. IV ONE (20:30)
[2017-01-20] MEDS: MIRTAZAPINE 15 MG TABLET PO SCH (21:00)
[2017-01-20] MEDS: traZODone 100 MG TABLET. PO SCH (21:00)
[2017-01-20] MEDS: ENOXAPARIN 40 MG/0.4 ML DISP.SYRIN. SQ SCH (21:01)
[2017-01-20] MEDS ORDERED: VANCOMYCIN 750 MG in IV NORMAL SALINE 250ML 250 ML IV SCH (21:30)
[2017-01-21] VITALS (9 sets, daily range): BP systolic 105–127; BP diastolic 53–70
--- NOTE | 2017-01-21 00:37 | PN ---
DATE: SUBJECTIVE: A 51-year-old female in with sepsis. The patient had some respiratory difficulty this morning, transferred to the ICU, oxygen saturation dropped down to 82% on 2 liters, blood pressure 117/72, respiratory 28-34 and temperature 98.9 and one time was up to 103, yesterday has come down gradually. The patient's white count is still elevated at 11.8, 9.2 and 28. Otherwise, the patient is still very weak, getting aggressive pulmonary toilet. She will be transferred to the ICU for close monitoring of her respiratory syndrome and make further evaluation there. PHYSICAL EXAMINATION: GENERAL: Otherwise, she is alert, very frail-appearing female, malnourished with low albumin of 2.5. RESPIRATORY: Her lungs are diminished, particularly in the left lower lung base with some discomfort when takes a deep breath. CARDIOVASCULAR: Regular sinus rhythm. ABDOMEN: Soft, flat, scaphoid. EXTREMITIES: With marked musculoskeletal wasting. NEUROLOGIC: Alert, very weak in her speech. LABORATORY DATA: The patient's otherwise labs show a little bit low potassium of 3.4. PLAN: We will go ahead and continue to monitor the patient, accordingly make further evaluation. She is on double antibiotics, vancomycin and Levaquin and we will make further evaluation on her as indicated per those results. IMPRESSION: Sepsis, acute respiratory failure, pneumonia of left lower lobe, [id number] protein malnutrition, failure to thrive, history of [place]'s disease, Crohn's disease, chronic kidney disease, hyponatremia, hypokalemia. Continue with IV antibiotic therapy, protein supplementation, supplementation as well. KARTIK KIRKLAND MD DR: QUINTON/adryan JOB#: [id number] / [id number]
--- NOTE | 2017-01-21 00:45 | ACF ---
Admission Criteria Forms HYPONATREMIA; HYPERNATREMIA; HYPOKALEMIA; HYPERKALEMIA; HYPOCALCEMIA; HYPERCALCEMIA Clinical Indications for Inpatient Care (Place 'X' for any and all applicable criteria): Ongoing inpatient care may be indicated for ANY ONE of the following [G](1)(2)(3 )(5): [X ]I. Hyponatremia with ANY ONE of the following: [ X]a) Sodium less than 130 mEq/L (mmol/L) (new) (6)(22) [ ]b) Sodium less than 135 mEq/L (mmol/L) with ANY ONE of the following: [ ]i) Severe medical etiology requiring inpatient management (eg, heart failure, hypovolemia) [ ]ii) Altered mental status [ ]iii) Seizures [ ]II. Hypernatremia with ANY ONE of the following: [ ]a) Sodium greater than 155 mEq/L (mmol/L) [ ]b) Sodium greater than 150 mEq/L (mmol/L) with ANY ONE of the following: [ ] i) Altered mental status [ ]ii) Seizures [ ]iii) Severe medical etiology (eg, hypovolemia, diabetes insipidus) [ ]iv) Severe weakness [ ]v) Severe medical etiology (eg, hemolysis, infection, drug overdose) [ ]III. Hypokalemia with ANY ONE of the following: [ ]a) Potassium less than 2.5 mEq/L (mmol/L) despite outpatient and emergency treatment [ ]b) Potassium less than 3.0 mEq/L (mmol/L) with ANY ONE of the following: [ ]i) Weakness [ ]ii) Cardiac abnormality (eg, arrhythmia, conduction disturbance) [ ]iii) Cardiac ischemia [ ]iv) Ileus [ ]v) Ongoing medical cause requiring inpatient management. ( e.g., acute renal wasting, SIADH) [ ]vi) Other severe symptoms [ ] IV. Hyperkalemia with ANY ONE of the following: [ ]a) Potassium greater than 6.5 mEq/L (mmol/L) [ ]b) Potassium greater than 5 mEq/L (mmol/L) with ANY ONE of the following: [ ]i) Severe ECG findings [H] [ ]ii) Acute worsening of renal failure (creatinine greater than 2.5 mg/dL (221 micromoles/L) or significant elevation for age and size) [ ] V. Hypocalcemia with ANY ONE of the following: [ ]a) Calcium less than 7 mg/dL (1.75 mmol/L) despite outpatient and emergency treatment(19) [ ]b) Calcium less than 8 mg/dL (2 mmol/L) with significant symptoms or findings; examples include: [ ]i) Cardiac abnormality (eg, arrhythmia or conduction disturbance) [ ]ii) Altered mental status [ ]iii) Seizures [ ]iv) Breathing difficulty [ ]v) Muscle spasms [ ]. Hypercalcemia with ANY ONE of the following: [ ]a) Calcium greater than 14 mg/dL (3.5 mmol/L) [ ]b) Calcium greater than 12 mg/dL (3 mmol/L) with ANY ONE of the following: [ ]i) Significant dehydration or hypovolemia as indicated by ANY ONE of the following(2): [ ]1. Clinically significant dehydration as indicated by ANY ONE of the following: [ ]A. Acute loss of weight from baseline (5% of body weight in adults, 9% in pediatric patients) [ ]B. Hemodynamic instability [ ]C. Acute renal failure [ ]D. Serum sodium greater than 150 mEq/L (mmol/L) [ ]2) Dehydration that is persistent indicated by ALL of the following: [ ]A. Oral rehydration therapy not tolerated or insufficient to adequately correct dehydration [ ]B. Appropriate intravenous treatment (eg, fluids ) does not readily correct dehydration ie, after 12 to 24 hours of treatment) [ ]ii) Significant symptoms or findings; examples include: [ ]1) Altered mental status [ ]2) Cardiac abnormality (eg, arrhythmia, conduction disturbance) [ ]3) Cardiac abnormality (eg, arrhythmia, conduction disturbance) The original [facility] content created by [facility] has been revised. The portions of the content which have been revised are identified through the use of italic text or in bold, and [facility] has neither reviewed nor approved the modified material. All other unmodified content is copyright [facility] Please see references footnoted in the original [facility] edition 2016 Admission Criteria Met?: Yes JUANPABLO TORRES Jan 21, 2017 00:45
[2017-01-21] MEDS: ALBUTEROL SULFATE 2.5 MG/3 ML NEBU. NEB SCH ×3 (05:21→15:33)
[2017-01-21 06:49] LABS: BASO % 0 % (0-3); EOS # 0.1 x10^3/uL (0.0-0.7); EOS % 1 % (0-3); HEMATOCRIT 23.9 % (36.0-47.0); HEMOGLOBIN 7.8 g/dL (12.0-15.5); LYMPH # 1.3 x10^3/uL (1.0-4.8); LYMPH % 12 % (24-48); MEAN CORPUSCULAR HEMOGLOBIN 31 pg (25-35); MEAN CORPUSCULAR HGB CONC 33 g/dL (31-37); MEAN CORPUSCULAR VOLUME 94 fL (79-100); MONO # 0.8 x10^3/uL (0.0-1.1); MONO % 7 % (0-9); NEUT # 9.2 x10^3uL (1.8-7.7); NEUT % 81 % (31-73); PLATELET COUNT 177 x10^3/uL (140-400); RED BLOOD COUNT 2.53 x10^6/uL (3.50-5.40); RED CELL DISTRIBUTION WIDTH 14.6 % (11.5-14.5); WHITE BLOOD COUNT 11.4 x10^3/uL (4.0-11.0)
[2017-01-21 08:04] LABS: CALCIUM 8.3 mg/dL (8.5-10.1)
[2017-01-21] MEDS: FLUDROCORTISONE 0.1 MG TABLET PO SCH ×2 (08:51→13:41)
[2017-01-21] MEDS: FERROUS SULFATE 325 MG TABLET PO SCH ×3 (08:51→16:57)
[2017-01-21] MEDS: FLUoxetine HCL 10 MG CAPSULE PO SCH (08:51)
[2017-01-21] MEDS: PHENAZOPYRIDINE 200 MG TABLET. PO SCH ×2 (08:51→13:41)
[2017-01-21] MEDS: FOLIC ACID 1 MG TABLET PO SCH (08:51)
[2017-01-21] MEDS: PANTOPRAZOLE 40 MG TABLET. PO SCH (08:51)
[2017-01-21] MEDS: FAMOTIDINE 20 MG TABLET PO SCH (08:51)
[2017-01-21] MEDS: LEVOTHYROXINE 150 MCG TABLET PO SCH (08:51)
[2017-01-21] MEDS: SUCRALFATE 1 GM TABLET. PO SCH ×3 (08:51→16:57)
[2017-01-21] MEDS: oxyCODONE IR 5 MG TABLET PO PRN (08:55)
[2017-01-21] MEDS: MORPHINE ER 30 MG TABLET.ER PO SCH (08:57)
[2017-01-21] MEDS: BUDESONIDE 0.5 MG/2 ML NEBU NEB SCH (11:19)
[2017-01-21] MEDS: ACETAMINOPHEN 325 MG TABLET PO PRN (11:44)
[2017-01-21] MEDS ORDERED: POTASSIUM CHLORIDE 20 MEQ TABLET.ER. PO SCH (14:00)
--- NOTE | 2017-01-21 22:58 | PN ---
DATE: 01/21/2017 SUBJECTIVE: A 51-year-old female who was very lethargic yesterday, gave her some Narcan, took her off some of her other medications and she is feeling much, much better this morning, more alert. The patient's last chest x-ray on the did show some worsening although the patient clinically looks much, much better. OBJECTIVE: VITAL SIGNS: Blood pressure 114/66, respiration 18, pulse 93, temperature 99.8. The patient is on vancomycin and Levaquin. Sputum were not for significant. Blood cultures so far have been negative. Gram stain on the sputum did show gram positive cocci, so we will continue with IV antibiotic therapy, aggressive pulmonary toilet and adjusting her medications so she is not quite as sedate. Otherwise, the patient is alert and oriented, much more strength in her voice this morning. Blood pressure 110/60, respiration 18, pulse 93, temperature 99.8. LUNGS: Diminished primarily in the left lower lobe. CARDIOVASCULAR: Regular sinus rhythm. ABDOMEN: Soft, nontender. EXTREMITIES: No clubbing, cyanosis, or edema. The patient is eating a little bit better making some progress there with her eating and getting her malnutrition under better control. IMPRESSION: Therefore, of pneumonia of unspecified etiology, community acquired, left lower lobe, sepsis secondary to pneumonia, moderate to severe protein malnutrition, history of Wanda's disease, Crohn's disease, chronic kidney disease, hyponatremia, hypokalemia. PLAN: Continue with IV antibiotic therapy, adjust electrolytes and breathing treatments. Consider for Trilogy. KARTIK KIRKLAND MD DR: QUINTON/adryan JOB#: [id number] / [id number]
== END 2017-01-21 19:45 | disposition short-term general hospital (02) | DRG 871 ==
LOC: ER 09:02 → 1 SOUTH 10:58 → ICU 01-19 22:17
PROVIDERS: ADMIT Family Medicine; ATTEND Family Medicine
DX: A41.9 Sepsis, unspecified organism (principal); J18.1 Lobar pneumonia, unspecified organism; J96.00 Acute respiratory failure, unspecified whether with hypoxia or hypercapnia; E43 Unspecified severe protein-calorie malnutrition; N17.9 Acute kidney failure, unspecified; E27.1 Primary adrenocortical insufficiency; K50.90 Crohn's disease, unspecified, without complications; E27.2 Addisonian crisis; E87.1 Hypo-osmolality and hyponatremia; Z68.1 Body mass index [BMI] 19.9 or less, adult; E05.90 Thyrotoxicosis, unspecified without thyrotoxic crisis or storm; E86.0 Dehydration; E87.6 Hypokalemia; M79.7 Fibromyalgia; N18.9 Chronic kidney disease, unspecified; R62.7 Adult failure to thrive; D64.9 Anemia, unspecified; Z88.1 Allergy status to other antibiotic agents; Z88.0 Allergy status to penicillin; Z88.8 Allergy status to other drugs, medicaments and biological substances; Z90.49 Acquired absence of other specified parts of digestive tract
CPT/HCPCS: 36415; 36600; 71010; 78582; 80048; 80053; 80307; 81001; 82533; 82550; 82803; 83605; 83615; 83735; 84484; 85025; 85379; 86738; 87040; 87070; 87205; 87324; 87641; 93005; 94640; 94760; 96374; A9540; A9558; J0696; J1650; J1956; J2310; J3370; J7040; J7050; J7613; J7626; 97110; 97116; 97530; 97535; G0479; J7030

== ENCOUNTER → 2017-03-17 | Outpatient (CLI) | payer MEDICARE ==
[2017-01-21 18:31] VITALS: BP 127/66
--- NOTE | 2017-03-17 16:36 | RAD ---
Examination: Ultrasound kidneys History: History of chronic kidney disease stage III Comparison: None available Findings: Right kidney measures 10.7 x 4.7 x 4.6 cm. The left kidney measures 10.5 x 4.8 x 3.7 cm. Few prominent appearing bilateral renal pyramids The urinary bladder is mildly distended. Impression: 1. Few prominent bilateral renal pyramids, nonspecific. Otherwise unremarkable exam.
== END | disposition home or self-care (01) ==
LOC: US 10:06
PROVIDERS: ATTEND Internal Medicine Nephrology
DX: I12.9 Hypertensive chronic kidney disease with stage 1 through stage 4 chronic kidney disease, or unspecified chronic kidney disease (principal); N18.3 Chronic kidney disease, stage 3 (moderate); N32.89 Other specified disorders of bladder; F17.200 Nicotine dependence, unspecified, uncomplicated
CPT/HCPCS: 76770

== ENCOUNTER → 2017-05-31 | Outpatient (CLI) | payer MEDICARE ==
[2017-01-21 18:31] VITALS: BP 127/66
[~2017-05-31] MED LIST changes: -FERR-26 PO; +FERR325T14 PO
== END | disposition home or self-care (01) ==
LOC: SURG 14:48
PROVIDERS: ATTEND Anesthesiology
DX: M54.16 Radiculopathy, lumbar region (principal); M47.816 Spondylosis without myelopathy or radiculopathy, lumbar region; M79.7 Fibromyalgia; G89.4 Chronic pain syndrome
CPT/HCPCS: 82947; 99214

== ENCOUNTER → 2017-06-30 | Outpatient (CLI) | payer MEDICARE ==
[2017-01-21 18:31] VITALS: BP 127/66
== END | disposition home or self-care (01) ==
LOC: SURG 09:07
PROVIDERS: ATTEND Anesthesiology Pain Medicine
DX: M54.5 Low back pain (principal)
CPT/HCPCS: 99214

== ENCOUNTER → 2017-09-01 | Outpatient (CLI) | payer MEDICARE ==
[2017-01-21 18:31] VITALS: BP 127/66
== END | disposition home or self-care (01) ==
LOC: SURG 11:25
PROVIDERS: ATTEND Anesthesiology Pain Medicine
DX: M47.816 Spondylosis without myelopathy or radiculopathy, lumbar region (principal); M54.16 Radiculopathy, lumbar region; G89.4 Chronic pain syndrome; F11.90 Opioid use, unspecified, uncomplicated; J44.9 Chronic obstructive pulmonary disease, unspecified
CPT/HCPCS: 99214

== ENCOUNTER → 2017-10-27 | Outpatient (CLI) | payer MEDICARE ==
[2017-01-21 18:31] VITALS: BP 127/66
== END | disposition home or self-care (01) ==
LOC: SURG 10:02
PROVIDERS: ATTEND Anesthesiology Pain Medicine
DX: M47.816 Spondylosis without myelopathy or radiculopathy, lumbar region (principal); I12.9 Hypertensive chronic kidney disease with stage 1 through stage 4 chronic kidney disease, or unspecified chronic kidney disease; N18.9 Chronic kidney disease, unspecified; F11.90 Opioid use, unspecified, uncomplicated; G89.4 Chronic pain syndrome
CPT/HCPCS: 99214

== ENCOUNTER → 2018-02-08 | Outpatient (CLI) | payer MEDICARE ==
[2018-01-29 06:10] VITALS: BP 125/79
[~2018-02-08] MED LIST changes: +0.9 % SODIUM CHLORIDE 10 ML VIAL ONE; +ALBU8.5H8 INH; +DOXY100T PO; +GABA300C8 PO; +IOHEXOL 300 MG/ML 50 ML VIAL. ONE; +LEVO112T4 PO; +LIDOCAINE 1% PF 2 ML VIAL. ONE; +OXYC1TAB7 PO; +PROP60CA8 PO; +TRAZ-86 PO; -TRAZ-90 PO; +XOPENEX0.63 MG/3 NEB; +methylPREDNISolone ACETATE 80 MG/ML VIAL. ONE
[2018-02-08 11:43] LABS: BASO % 1 % (0-3); EOS # 0.3 x10^3/uL (0.0-0.7); EOS % 7 % (0-3); HEMOGLOBIN 9.7 g/dL (12.0-15.5); LYMPH # 1.4 x10^3/uL (1.0-4.8); LYMPH % 33 % (24-48); MEAN CORPUSCULAR HEMOGLOBIN 32 pg (25-35); MEAN CORPUSCULAR HGB CONC 34 g/dL (31-37); MEAN CORPUSCULAR VOLUME 96 fL (79-100); MONO # 0.3 x10^3/uL (0.0-1.1); MONO % 6 % (0-9); NEUT # 2.3 x10^3uL (1.8-7.7); NEUT % 53 % (31-73); PLATELET COUNT 201 x10^3/uL (140-400); RED BLOOD COUNT 3.02 x10^6/uL (3.50-5.40); RED CELL DISTRIBUTION WIDTH 15.2 % (11.5-14.5); WHITE BLOOD COUNT 4.3 x10^3/uL (4.0-11.0)
[2018-02-08 11:51] LABS: CALCIUM 9.1 mg/dL (8.5-10.1); CREATININE 1.6 mg/dL (0.6-1.0); GFR 33.6; POTASSIUM 5.2 mmol/L (3.5-5.1)
== END | disposition home or self-care (01) ==
LOC: SURG 09:27
PROVIDERS: ATTEND Anesthesiology Pain Medicine
DX: M47.26 Other spondylosis with radiculopathy, lumbar region (principal); I10 Essential (primary) hypertension; K21.9 Gastro-esophageal reflux disease without esophagitis; G89.4 Chronic pain syndrome; F32.9 Major depressive disorder, single episode, unspecified; E03.9 Hypothyroidism, unspecified; F41.9 Anxiety disorder, unspecified; M19.90 Unspecified osteoarthritis, unspecified site; J44.9 Chronic obstructive pulmonary disease, unspecified; M79.7 Fibromyalgia; Z87.01 Personal history of pneumonia (recurrent); K50.90 Crohn's disease, unspecified, without complications; Z98.890 Other specified postprocedural states; Z82.49 Family history of ischemic heart disease and other diseases of the circulatory system; Z79.01 Long term (current) use of anticoagulants; Z79.899 Other long term (current) drug therapy; Z88.1 Allergy status to other antibiotic agents; Z88.0 Allergy status to penicillin; Z88.8 Allergy status to other drugs, medicaments and biological substances
CPT/HCPCS: 36415; 62323; 80048; 85025; 85610; J1040; Q9967

== ENCOUNTER → 2018-07-27 | Outpatient (CLI) | payer MEDICARE ==
[2018-01-29 06:10] VITALS: BP 125/79
[~2018-07-27] MED LIST changes: -0.9 % SODIUM CHLORIDE 10 ML VIAL ONE; -ALBU18HF IH; +ALBU2.5V8 IH; +ALBU2.5V8 INH; -ALBU8.5H8 INH; -IOHEXOL 300 MG/ML 50 ML VIAL. ONE; -LIDOCAINE 1% PF 2 ML VIAL. ONE; -methylPREDNISolone ACETATE 80 MG/ML VIAL. ONE
== END | disposition home or self-care (01) ==
LOC: SURG 15:07
PROVIDERS: ATTEND Anesthesiology Pain Medicine
DX: M54.5 Low back pain (principal); R10.9 Unspecified abdominal pain; J44.9 Chronic obstructive pulmonary disease, unspecified; I10 Essential (primary) hypertension; Z86.2 Personal history of diseases of the blood and blood-forming organs and certain disorders involving the immune mechanism
CPT/HCPCS: 99214

== ENCOUNTER → 2018-08-31 | Outpatient (CLI) | payer MEDICARE ==
[2018-01-29 06:10] VITALS: BP 125/79
[~2018-08-31] MED LIST changes: +0.9 % SODIUM CHLORIDE 10 ML VIAL ONE; +IOHEXOL 300 MG/ML 50 ML VIAL. ONE; +LIDOCAINE 1% PF 30 ML VIAL. ONE; +methylPREDNISolone ACETATE 80 MG/ML VIAL. ONE
== END | disposition home or self-care (01) ==
LOC: SURG 15:16
PROVIDERS: ATTEND Anesthesiology Pain Medicine
DX: M54.16 Radiculopathy, lumbar region (principal); E03.9 Hypothyroidism, unspecified; F32.9 Major depressive disorder, single episode, unspecified; F41.9 Anxiety disorder, unspecified; I10 Essential (primary) hypertension; K21.9 Gastro-esophageal reflux disease without esophagitis; K50.90 Crohn's disease, unspecified, without complications; Z98.890 Other specified postprocedural states; Z82.49 Family history of ischemic heart disease and other diseases of the circulatory system; Z79.899 Other long term (current) drug therapy; Z88.1 Allergy status to other antibiotic agents; Z88.0 Allergy status to penicillin; J44.9 Chronic obstructive pulmonary disease, unspecified; Z87.01 Personal history of pneumonia (recurrent); M19.90 Unspecified osteoarthritis, unspecified site; Z88.8 Allergy status to other drugs, medicaments and biological substances
CPT/HCPCS: 62323; J1040; J2001; Q9967

== ENCOUNTER → 2018-09-05 | Outpatient (CLI) | payer MEDICARE ==
[2018-01-29 06:10] VITALS: BP 125/79
[~2018-09-05] MED LIST changes: -0.9 % SODIUM CHLORIDE 10 ML VIAL ONE; +IOHEXOL 240 MG/ML 50ML VIAL. ONE; +IOHEXOL 240 MG/ML 50ML VIAL. PO ONE; -IOHEXOL 300 MG/ML 50 ML VIAL. ONE; +IOHEXOL 300 MG/ML 75 ML VIAL. IV ONE; -LIDOCAINE 1% PF 30 ML VIAL. ONE; -methylPREDNISolone ACETATE 80 MG/ML VIAL. ONE
--- NOTE | 2018-09-05 09:40 | RAD ---
CT of the abdomen and pelvis without contrast, 09/05/2018: HISTORY: Gastric pain, previous colon surgery No IV contrast was administered for this study as requested. Oral contrast material was given for GI tract opacification. Comparison is made to a study from 02/26/2013. A trace amount of pericardial fluid is present, also evident on the previous study. The visualized lung bases are clear. No pleural fluid is evident. The unopacified liver is unremarkable. The gallbladder appears collapsed. There is a paucity of intra-abdominal fat in this patient producing poor separation of the abdominal structures, particularly on these noncontrast scans. The pancreas is not clearly visualized. The spleen is of normal size. The unopacified kidneys show no abnormality. There is moderate aortoiliac calcific plaquing without evidence of aneurysm. No abdominal or pelvic adenopathy is seen. A colostomy is present in the right lower quadrant. The bowel loops are not dilated. No free air is present in the abdomen. There is a trace amount of free fluid in the abdomen and pelvis. A slightly greater amount of free fluid was evident in the pelvis on the previous study. There are mild scattered degenerative changes in the lumbar spine. IMPRESSION: 1. Right lower quadrant colostomy. 2. Trace amount of free fluid in the abdomen and pelvis, also present on the previous exam. 3. No new abdominal or pelvic abnormality is detected. PQRS Compliance Statement: One or more of the following individualized dose reduction techniques were utilized for this examination: 1. Automated exposure control 2. Adjustment of the mA and/or kV according to patient size 3. Use of iterative reconstruction technique Electronically signed by: Esequiel Choe MD (09/05/2018 9:37 AM) [facility]
== END | disposition home or self-care (01) ==
LOC: CT 07:54
PROVIDERS: ATTEND Family Medicine
DX: R63.4 Abnormal weight loss (principal); M47.816 Spondylosis without myelopathy or radiculopathy, lumbar region; E03.9 Hypothyroidism, unspecified; Z93.3 Colostomy status
CPT/HCPCS: 74176

== ENCOUNTER → 2018-10-20 | Outpatient (CLI) | payer MEDICARE ==
[2018-01-29 06:10] VITALS: BP 125/79
[~2018-10-20] MED LIST changes: -IOHEXOL 240 MG/ML 50ML VIAL. ONE; -IOHEXOL 240 MG/ML 50ML VIAL. PO ONE; -IOHEXOL 300 MG/ML 75 ML VIAL. IV ONE
== END | disposition home or self-care (01) ==
LOC: SURG 11:29
PROVIDERS: ATTEND Anesthesiology Pain Medicine
DX: M54.16 Radiculopathy, lumbar region (principal); E03.9 Hypothyroidism, unspecified; E27.1 Primary adrenocortical insufficiency; I10 Essential (primary) hypertension; K21.9 Gastro-esophageal reflux disease without esophagitis; G89.4 Chronic pain syndrome; Z79.899 Other long term (current) drug therapy; Z88.0 Allergy status to penicillin; Z88.8 Allergy status to other drugs, medicaments and biological substances; Z79.891 Long term (current) use of opiate analgesic; Z82.49 Family history of ischemic heart disease and other diseases of the circulatory system
CPT/HCPCS: 99214

== ENCOUNTER 2019-02-06 17:44 | Emergency (ER) | payer MEDICARE ==
[~2019-02-06] VITALS: Ht 160 cm; Wt 37.5 kg
[~2019-02-06 17:44] MED LIST changes: +PROP60CA36 PO; -PROP60CA8 PO; -TIZA4TAB PO; +TIZA4TAB2 PO
[2019-02-06] MEDS ORDERED: IV RINGERS SOLUTION,LACTATED 1,000 ML IV SCH (17:56)
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
[2019-02-06] MEDS ORDERED: MORPHINE SULFATE 10 MG/ML SYRINGE. SQ ONE (18:30)
[2019-02-06] MEDS ORDERED: methylPREDNISolone SOD SUCC PF 125 MG/2 ML VIAL. IV ONE (18:30)
[2019-02-06 18:39] LABS: BARBITURATES NEG (NEG); BENZODIAZEPINES NEG (NEG); CANNABINOIDS NEG (NEG); COCAINE NEG (NEG); METHADONE NEG (NEG); OPIATES NEG (NEG); PHENCYCLIDINE NEG (NEG)
[2019-02-06 18:42] LABS: BILIRUBIN,URINE NEG (NEG); CLARITY,URINE HAZY; COLOR,URINE STRAW; GLUCOSE,URINE NEG (NEG); UROBILINOGEN,URINE 0.2 mg/dL (0.2 mg/dL)
[2019-02-06 18:43] LABS: BACTERIA,URINE FEW /HPF (0-FEW); NITRITE,URINE NEG (NEG); RBC,URINE RARE /HPF (0-2); SQUAMOUS EPITHELIAL CELL,UR OCC /LPF; WBC,URINE OCC /HPF (0-4)
[2019-02-06 18:44] LABS: AMPHETAMINE/METHAMPHETAMINE NEG (NEG)
--- NOTE | 2019-02-06 19:11 | EKG ---
[address] [address] Test Date: 2019-02-06 Test Time: 18:18:48 Pat Name: JAREN BERNAL Department: Room: Gender: F Syrup Maker: : 1965 Requested By: JOSÉ HOWE Order Number: [id number] Reading MD: Damian Chávez MD Measurements Intervals [place] Rate: 66 P: 70 [place]: 174 QRS: 71 QRSD: 118 T: 34 QT: 458 QTc: 482 Interpretive Statements SINUS RHYTHM RBBB Electronically Signed On 02-18-2019 22:05:28 CDT by Damian Chávez MD
[2019-02-06 19:14] LABS: BASO # 0.1 x10^3/uL (0.0-0.2); BASO % 1 % (0-3); EOS # 0.3 x10^3/uL (0.0-0.7); EOS % 5 % (0-3); HEMATOCRIT 29.7 % (36.0-47.0); LYMPH # 1.3 x10^3/uL (1.0-4.8); LYMPH % 21 % (24-48); MEAN CORPUSCULAR HEMOGLOBIN 33 pg (25-35); MEAN CORPUSCULAR HGB CONC 34 g/dL (31-37); MEAN CORPUSCULAR VOLUME 99 fL (79-100); MONO # 0.4 x10^3/uL (0.0-1.1); MONO % 6 % (0-9); NEUT % 67 % (31-73); PLATELET COUNT 190 x10^3/uL (140-400); RED BLOOD COUNT 2.99 x10^6/uL (3.50-5.40)
[2019-02-06 19:32] LABS: ALBUMIN 3.6 g/dL (3.4-5.0); CALCIUM 8.6 mg/dL (8.5-10.1); CREATININE 1.3 mg/dL (0.6-1.0); DIRECT BILIRUBIN 0.2 mg/dL (0.0-0.2); GFR 42.5; MAGNESIUM 1.6 mg/dL (1.8-2.4); POTASSIUM 4.2 mmol/L (3.5-5.1); TOTAL BILIRUBIN 0.5 mg/dL (0.2-1.0); TOTAL PROTEIN 6.6 g/dL (6.4-8.2)
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
[2019-02-06 21:00] VITALS: BP 144/85
[2019-02-06] MEDS ORDERED: MAGNESIUM HYDROXIDE 2,400 MG/30 ML ORAL.SUSP. PO ONE (21:00)
--- NOTE | 2019-02-07 07:33 | RAD ---
PORTABLE CHEST 1V History: Fall Comparison: January 24, 2018 Findings: 2 AP views of the chest are submitted. There is lung hyperexpansion. There is no infiltrate, pleural fluid, pneumothorax. There is minimally displaced left posterior lateral ninth rib fracture. Aortic stripe is visualized. There is no apical capping. Cardiac silhouette is within normal limits. Impression: 1. There is minimally displaced left posterolateral ninth rib fracture. Electronically signed by: Roberto Leach MD (02/07/2019 7:30 AM) [id number]
--- NOTE | 2019-02-07 07:42 | RAD ---
EXAM: AP pelvis, AP and lateral views right femur DATE: 02/06/2019 5:56 PM INDICATION: Fall, right hip and leg pain. COMPARISON: No Prior FINDINGS: No evidence of acute fracture or dislocation. Joint spaces are preserved without significant degenerative/proliferative change. Decreased bone mineral density. IMPRESSION: Within the constraints of osteopenia, no evidence for acute fracture. Electronically signed by: Papi Guajardo MD (02/07/2019 7:39 AM) [facility]
--- NOTE | 2019-02-07 07:42 | RAD ---
EXAM: AP pelvis, AP and lateral views right femur DATE: 02/06/2019 5:56 PM INDICATION: Fall, right hip and leg pain. COMPARISON: No Prior FINDINGS: No evidence of acute fracture or dislocation. Joint spaces are preserved without significant degenerative/proliferative change. Decreased bone mineral density. IMPRESSION: Within the constraints of osteopenia, no evidence for acute fracture. Electronically signed by: Papi Guajardo MD (02/07/2019 7:39 AM) [facility]
== END 2019-02-06 21:15 | disposition home or self-care (01) ==
LOC: ER 17:44
DX: S70.01XA Contusion of right hip, initial encounter (principal); D64.9 Anemia, unspecified; E87.1 Hypo-osmolality and hyponatremia; E83.42 Hypomagnesemia; R79.1 Abnormal coagulation profile; R79.89 Other specified abnormal findings of blood chemistry; M79.7 Fibromyalgia; G89.29 Other chronic pain; Z86.2 Personal history of diseases of the blood and blood-forming organs and certain disorders involving the immune mechanism; E05.90 Thyrotoxicosis, unspecified without thyrotoxic crisis or storm; Z90.49 Acquired absence of other specified parts of digestive tract; Z88.0 Allergy status to penicillin; Z88.1 Allergy status to other antibiotic agents; Z88.8 Allergy status to other drugs, medicaments and biological substances; Z91.041 Radiographic dye allergy status; V19.9XXA Pedal cyclist (driver) (passenger) injured in unspecified traffic accident, initial encounter; Y93.I9 Activity, other involving external motion; Y92.488 Other paved roadways as the place of occurrence of the external cause; Y99.8 Other external cause status
CPT/HCPCS: 36415; 51702; 71045; 72131; 72170; 72192; 73552; 80048; 80076; 80307; 81001; 82550; 83690; 83735; 83880; 84443; 84484; 85025; 85379; 85730; 93005; 96372; 96374; 99285; J2270; J2930; J7120; 96361

== ENCOUNTER 2019-02-12 13:14 | Emergency (ER) | payer MEDICARE ==
[~2019-02-12] VITALS: Ht 160 cm; Wt 36.7 kg
[2019-02-12] MEDS ORDERED: IBUPROFEN 600 MG TABLET. PO ONE (13:30)
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
[2019-02-12] MEDS ORDERED: HYDROmorphone PF 1 MG/ML DISP.SYRIN IV ONE ×2 (13:45→15:45)
--- NOTE | 2019-02-12 13:56 | RAD ---
Examination: HIP RIGHT 2 VIEW History: Fall, pain Comparison/Correlation: 02/26/2013 CT abdomen and pelvis with contrast Findings: Frontal and crosstable lateral views of the right hip were obtained. Displaced subcapital fracture is present. Hip joint space is adequate. Moderate mineralization is adequate. Impression: Displaced right subcapital fracture. Electronically signed by: Valentino Sethi MD (02/12/2019 1:53 PM) [facility]
--- NOTE | 2019-02-12 13:56 | RAD ---
Examination: RIGHT FEMUR XRAY History: Fall, pain Comparison/Correlation: None Findings: A total 3 images of the right femur were obtained. Displaced right subcapital fracture is noted. Right hip joint space is evident. Soft tissues are grossly unremarkable. Impression: Displaced right subcapital fracture. Electronically signed by: Valentino Sethi MD (02/12/2019 1:54 PM) [facility]
--- NOTE | 2019-02-12 13:58 | RAD ---
CHEST AP ONLY Clinical Indication: Hip fracture Comparison: 02/06/2019 Portable Chest X-ray Exam. Findings: Frontal view the chest was obtained. The cardiomediastinal silhouette is normal. Lungs are clear. There is no pneumothorax. No pleural effusion is appreciated. No acute bone abnormality. Pulmonary hyperinflation noted. IMPRESSION: No acute cardiopulmonary process. Pulmonary hyperinflation. Consider further imaging of fracture is a persistent concern. Electronically signed by: Valentino Sethi MD (02/12/2019 1:56 PM) [facility]
[2019-02-12 14:20] LABS: BASO % 1 % (0-3); EOS # 0.3 x10^3/uL (0.0-0.7); EOS % 5 % (0-3); HEMATOCRIT 31.3 % (36.0-47.0); HEMOGLOBIN 10.3 g/dL (12.0-15.5); LYMPH # 1.3 x10^3/uL (1.0-4.8); LYMPH % 19 % (24-48); MEAN CORPUSCULAR HEMOGLOBIN 33 pg (25-35); MEAN CORPUSCULAR HGB CONC 33 g/dL (31-37); MEAN CORPUSCULAR VOLUME 99 fL (79-100); MONO # 0.3 x10^3/uL (0.0-1.1); MONO % 4 % (0-9); NEUT # 4.9 x10^3uL (1.8-7.7); NEUT % 72 % (31-73); PLATELET COUNT 226 x10^3/uL (140-400); RED BLOOD COUNT 3.15 x10^6/uL (3.50-5.40); RED CELL DISTRIBUTION WIDTH 13.8 % (11.5-14.5); WHITE BLOOD COUNT 6.9 x10^3/uL (4.0-11.0)
[2019-02-12 14:27] LABS: CALCIUM 8.7 mg/dL (8.5-10.1); CREATININE 1.3 mg/dL (0.6-1.0); GFR 42.5; POTASSIUM 4.7 mmol/L (3.5-5.1)
[2019-02-12 15:14] VITALS: BP 115/71
== END 2019-02-12 16:20 | disposition short-term general hospital (02) ==
LOC: ER 13:14
DX: S72.001A Fracture of unspecified part of neck of right femur, initial encounter for closed fracture (principal); W18.39XA Other fall on same level, initial encounter; M81.0 Age-related osteoporosis without current pathological fracture; M79.7 Fibromyalgia; E05.90 Thyrotoxicosis, unspecified without thyrotoxic crisis or storm; F17.210 Nicotine dependence, cigarettes, uncomplicated; Z86.2 Personal history of diseases of the blood and blood-forming organs and certain disorders involving the immune mechanism; Z90.49 Acquired absence of other specified parts of digestive tract; Z88.0 Allergy status to penicillin; Z88.1 Allergy status to other antibiotic agents; Z88.8 Allergy status to other drugs, medicaments and biological substances; Z91.041 Radiographic dye allergy status; X50.1XXA Overexertion from prolonged static or awkward postures, initial encounter; Y93.89 Activity, other specified; Y92.89 Other specified places as the place of occurrence of the external cause; Y99.8 Other external cause status
CPT/HCPCS: 36415; 71045; 73502; 73552; 80048; 85025; 85610; 85730; 96374; 96376; 99285; J1170

== ENCOUNTER → 2020-06-03 | Outpatient (CLI) | payer MEDICARE ==
[~2020-06-03] VITALS: Ht 162.6 cm; Wt 29.0 kg
[~2020-06-03] MED LIST changes: +FLUO10CA15 PO; -FLUO10CA7 PO; +MORPHINE SULFATE 4 MG/ML DISP.SYRIN. IV ONE; -PANT40TA5 PO; +PANT40TA6 PO; +TRAZ-125 PO; -TRAZ-86 PO
--- NOTE | 2020-06-03 14:20 | RAD ---
HEPATOBILIARY SCAN WITH EJECTION FRACTION Indication: Chronic gastroesophageal reflux, nausea Comparison: None Procedure: Serial static images are obtained of the liver and biliary system following IV administrat ion of 5.5 mCi of 99 M technetium Mebrofenin. A 4 mg dose of morphine sulfate was administered to pro mote filling of the gallbladder. Findings: There is heterogeneous distribution throughout the liver. Biliary system is visualized on t he 5 minute image. The gallbladder does not fill by the 60 minute image. Consequently, 4 mg of IV mo rphine was administered and additional imaging was performed for 30 minutes, during which time the ga llbladder remained unfilled. Sincalide administration was deferred. Impression: Nonfilling of the gallbladder concerning for cholecystitis. Electronically signed by: Gregg Garcia MD (06/03/2020 2:17 PM) [id number]
== END ==
LOC: NM 08:56
PROVIDERS: ATTEND Family Medicine
DX: K82.0 Obstruction of gallbladder (principal); K21.9 Gastro-esophageal reflux disease without esophagitis; R11.0 Nausea
CPT/HCPCS: 78227; A9537; J2270

== ENCOUNTER → 2020-06-16 | Outpatient (CLI) | payer MEDICARE ==
[~2020-06-16] MED LIST changes: -MORPHINE SULFATE 4 MG/ML DISP.SYRIN. IV ONE
--- NOTE | 2020-06-16 15:57 | RAD ---
Examination: C-spine 3 views INDICATION: Neck pain COMPARISON: Soft tissue neck CT 11/20/2012 TECHNIQUE: AP, odontoid and lateral views of the cervical spine were obtained. FINDINGS: There is interval kyphosis of the cervical spine apex at C4-C5. There is apparent subluxation of the facet joints at C4-C5. No radiographically apparent jumped facets. There is mild rightward convexity scoliosis of the cervical spine on the AP view. The odontoid view s hows symmetric alignment of the C1 lateral masses with C2. No acute fracture. No aggressive bony lesions. Prevertebral soft tissues are unremarkable. IMPRESSION: Interval reversal normal cervical lordosis with focal kyphosis at C4-C5 and evidence of subluxations facet joints. Consider correlation with CT or MRI if appropriate. Examination: L-spine 3 views INDICATION: Back pain COMPARISON: Same day CT abdomen and pelvis without IV contrast. TECHNIQUE: AP, lateral and coned-down lateral views of the lumbar spine were obtained. FINDINGS: Normal alignment with no fracture or aggressive osseous lesions. Facet hypertrophic changes are prese nt. Sacroiliac joints are unremarkable. IMPRESSION: No acute findings in the lumbar spine to explain back pain. Electronically signed by: Jes Mehta MD (06/16/2020 3:55 PM) [id number]
== END ==
LOC: DXRAD 10:25
PROVIDERS: ATTEND Psychiatry & Neurology Neurology
DX: M40.292 Other kyphosis, cervical region (principal); M54.5 Low back pain; M54.2 Cervicalgia
CPT/HCPCS: 72040; 72100

== ENCOUNTER → 2020-06-16 | Outpatient (CLI) | payer MEDICARE ==
[~2020-06-16] MED LIST changes: +IOHEXOL 240 MG/ML 50ML VIAL. ONE
[2020-06-16 11:16] LABS: CREATININE 1.5 mg/dL (0.6-1.0); GFR 35.9
--- NOTE | 2020-06-16 12:25 | RAD ---
CT scan abdomen and pelvis without contrast 06/16/2020 CLINICAL HISTORY: Abdominal pain. TECHNIQUE: After the oral administration contrast only, contiguous, 3 mm axial sections were obtained through the abdomen and pelvis. One or more of the following individualized dose reduction techniques were utilized for this study: 1. Automated exposure control. 2. Adjustment of the mA and/or kV according to patient size. 3. Use of iterative reconstruction technique. FINDINGS: Comparison study is dated 09/05/2018. Images through the lung bases are within normal limits. The liver, spleen, pancreas, adrenal glands and kidneys are within normal limits. Atherosclerotic calcification of the abdominal aorta is seen. The abdominal aorta tapers normally. A colostomy is seen within the right lower quadrant abdomen. There is no evidence of bowel obstruction. No free fluid or free air is seen within the abdomen. Images through the pelvis demonstrate the urinary bladder distended with urine. Calcifications are se en within the pelvis consistent with phleboliths. A small amount of free fluid is seen within the pel vis. The patient is post right ENRIKE. Very mild S-shaped curvature of the thoracolumbar spine is seen. Degenerative changes are seen involving the lower thoracic and mid and lower lumbar spine along with the left hip. IMPRESSION: Small amount of free fluid is seen within the pelvis. No additional acute abnormality is seen. Electronically signed by: Vincent Castro MD (06/16/2020 12:23 PM) [id number]
== END ==
LOC: CT 10:20
PROVIDERS: ATTEND Surgery
DX: N32.89 Other specified disorders of bladder (principal); M43.8X5 Other specified deforming dorsopathies, thoracolumbar region; M47.815 Spondylosis without myelopathy or radiculopathy, thoracolumbar region; I70.0 Atherosclerosis of aorta; Z90.49 Acquired absence of other specified parts of digestive tract
CPT/HCPCS: 36415; 74176; 82565; 84520